=== PATIENT | female | born 1955 | race Caucasian/White ===

== ENCOUNTER 2023-06-23 14:00 | Outpatient (OUT) | payer MEDICARE, SELFPAY ==
[2023-06-23 15:10] LABS: Estimated Average Glucose 111 mg/dL; Glycohemoglobin A1C 5.5 % (4.5-6.2)
[2023-06-23 15:17] LABS: Alanine Aminotransferase 20 U/L (14-59); Albumin Globulin Ratio 1.3; Alkaline Phosphatase 64 U/L (46-116); Anion Gap 13.5; Aspartate Amino Transferase 16 U/L (15-37); BUN Creatinine Ratio 20.5; Bilirubin Total 0.4 mg/dL (0.2-1.0); Calcium 9.1 mg/dL (8.5-10.1); Carbon Dioxide 31.8 mmol/L (21.0-32.0); Chloride 100 mmol/L (98-107); Chol HDL Ratio 2.4; Cholesterol 263 mg/dL (<=200); Estimated GFR (African America >60 (>=60); Estimated GFR (Non-African Ame >60 (>=60); Free T3 2.28 pg/mL (2.18-3.98); Globulin 3.1 g/dL; Glucose 112 mg/dL (74-106); HDL Cholesterol 110 mg/dL (40-60); Potassium 4.3 mmol/L (3.5-5.1); Sodium 141 mmol/L (136-145); Thyroid Stimulating Hormone 1.185 uIU/mL (0.358-3.740); Total Protein 7.1 g/dL (6.4-8.2); Triglycerides 82 mg/dL (<=150); VLDL CHOLESTEROL 16.4 mg/dL
[2023-06-23 15:19] LABS: Basophils Percent Auto 0.3 % (0.2-2.0); Eosinophils Percent Auto 0.1 % (0.9-7.0); Hematocrit 45.8 % (36.0-48.0); Hemoglobin 15.1 g/dL (12.0-16.0); Immature Granulocytes Abs Auto 0.07 10^3/uL (0.00-0.03); Immature Granulocytes Pct Auto 0.5 % (0.0-0.5); Lymphocytes Absolute Auto 1.6 10^3/uL (1.2-3.8); Lymphocytes Percent Auto 11.7 % (20.5-60.0); Mean Corpuscular Hemoglobin 34.6 pg (26.7-34.0); Mean Corpuscular Volume 104.8 fL (81.0-99.0); Mean Platelet Volume 10.2 fL (9.5-13.5); Monocytes Absolute Auto 0.6 10^3/uL (0.3-0.8); Monocytes Percent Auto 4.6 % (1.7-12.0); Neutrophils Absolute Auto 11.2 10^3/uL (1.4-6.5); Neutrophils Percent Auto 82.8 % (43.0-75.0); Platelet Count 369 10^3/uL (150-450); Red Blood Count 4.37 10^6/uL (4.20-5.40); Red Cell Distribution Width 14.6 % (11.0-15.0); White Blood Count 13.6 10^3/uL (4.0-11.0)
[2023-06-24 13:09] LABS: Insulin 12.9 uIU/mL (2.6-24.9)
== END 2023-06-23 14:01 | disposition home or self-care (01) ==
LOC: LAB 14:15
PROVIDERS: PCP Nurse Practitioner Family; Visit Provider Nurse Practitioner Family
DX: J45.909 Unspecified asthma, uncomplicated (principal); E78.5 Hyperlipidemia, unspecified; D64.9 Anemia, unspecified; E11.9 Type 2 diabetes mellitus without complications; Z79.899 Other long term (current) drug therapy; Z12.11 Encounter for screening for malignant neoplasm of colon; E03.9 Hypothyroidism, unspecified; E55.9 Vitamin D deficiency, unspecified
CPT/HCPCS: 36415; 80053; 80061; 82306; 83036; 83525; 83540; 84436; 84443; 84481; 85025

== ENCOUNTER 2023-07-12 10:56 | Outpatient (OUT) | payer MEDICARE, SELFPAY ==
--- NOTE | 2023-07-12 11:08 | XR_ITS ---
The [address] [address] Patient Name: IDALMIS ROGER MRN: [id number] date: 1955 Sex: F Assigned Patient Location: [facility] Current Patient Location: Accession/Order Number: [id number] Exam Date: 07/12/2023 11:15 Report Date: 07/13/2023 01:24 At the request of: KEV DEVINE Procedure: XR thoracic spine 3V EXAMINATION: XR thoracic spine 3V HISTORY: Other Intervertebral Disc Degeneration Thoracic Spine M51.34 ; mid back pain for 3 weeks; no known injury COMPARISON: CT chest 01/29/2021 FINDINGS: BONES: Compression fracture of T7 vertebral body with loss of approximately 40% of its height. Mild left convex curvature of thoracic spine and right convex curvature of thoracolumbar spine. DISC SPACES: Multilevel mild narrowing. PARASPINOUS: Negative. No paraspinous abnormality is seen. OTHER: Negative. XR/XR thoracic spine 3V IMPRESSION: 1. Age-indeterminate moderate compression fracture of T7; new since 01/29/2021. Electronically authenticated by: BRENNAN DAVIDSON Date: 07/13/2023 01:24
== END 2023-07-12 10:57 | disposition home or self-care (01) ==
PROVIDERS: PCP Nurse Practitioner Family; Visit Provider Nurse Practitioner Family
DX: M51.34 Other intervertebral disc degeneration, thoracic region (principal); M48.54XA Collapsed vertebra, not elsewhere classified, thoracic region, initial encounter for fracture
CPT/HCPCS: 72072

== ENCOUNTER 2023-07-19 12:47 | Outpatient (OUT) | payer MEDICARE, SELFPAY ==
--- NOTE | 2023-07-19 13:19 | XR_ITS ---
[address] [address] Patient Name: IDALMIS ROGER MRN: [id number] date: 1955 Sex: F Assigned Patient Location: [facility] Current Patient Location: [facility] Accession/Order Number: [id number] Exam Date: 07/19/2023 13:09 Report Date: 07/19/2023 13:47 At the request of: KEV DEVINE Procedure: XR DEXA axial skeleton EXAMINATION: XR DEXA axial skeleton, 07/19/2023 1:09 PM EST HISTORY: Compression fracture of body of thoracic vertebrae COMPARISON: None. TECHNIQUE: Dual-energy X-ray absorptiometry (DEXA) bone density study performed for the axial skeleton. HISTORY: Compression fracture of body of thoracic vertebrae FINDINGS: Bone mineral density AP spine L1-L4 measures 0.823 g/sq cm. T score -3.0. WHO classification: Osteoporosis. High fracture risk. Lowest bone mineral densities in the left femoral trochanter measuring 0.449 g/sq cm. T score -3.5. WHO classification: Osteoporosis XR/XR DEXA axial skeleton IMPRESSION: Osteoporosis. High fracture risk Electronically authenticated by: NAHID LOPEZ Date: 07/19/2023 13:47
== END 2023-07-19 12:48 | disposition home or self-care (01) ==
LOC: RAD 12:47
PROVIDERS: PCP Nurse Practitioner Family; Visit Provider Nurse Practitioner Family
DX: S22.000A Wedge compression fracture of unspecified thoracic vertebra, initial encounter for closed fracture (principal); M81.0 Age-related osteoporosis without current pathological fracture
CPT/HCPCS: 77080

== ENCOUNTER 2024-07-24 10:08 | Emergency (ER) | payer MEDICARE, SELFPAY ==
[2024-07-24 10:19] VITALS: BP 160/82; PULSE 87; TEMP 36.7; O2SAT 94; BMI 20.3
--- NOTE | 2024-07-24 10:24 | XR_ITS ---
The [address] [address] Patient Name: IDALMIS ROGER MRN: [id number] date: 1955 Sex: F Assigned Patient Location: ER Current Patient Location: ER Accession/Order Number: [id number] Exam Date: 07/24/2024 10:35 Report Date: 07/24/2024 11:14 At the request of: DONNY ARRIAZA Procedure: XR ribs RT min 3V w CXR1V EXAMINATION: XR ribs RT min 3V w CXR1V HISTORY: fall COMPARISON: No relevant comparison available. FINDINGS: LUNGS: No significant pulmonary parenchymal abnormalities. Hyperinflation PLEURA: No pneumothorax, effusion, or pleural thickening. MEDIASTINUM: No visible mass or adenopathy. CARDIAC: No cardiomegaly or cardiac silhouette abnormality. RIBS: No acute rib fracture OTHER: Negative. XR/XR ribs RT min 3V w CXR1V IMPRESSION: No acute rib fracture Electronically authenticated by: NAHID LOPEZ Date: 07/24/2024 11:14
--- NOTE | 2024-07-24 10:24 | XR_ITS ---
The [address] [address] Patient Name: IDALMIS ROGER MRN: [id number] date: 1955 Sex: F Assigned Patient Location: ER Current Patient Location: ER Accession/Order Number: [id number] Exam Date: 07/24/2024 10:35 Report Date: 07/24/2024 11:12 At the request of: DONNY ARRIAZA Procedure: XR sternum min 2V EXAMINATION: XR sternum min 2V HISTORY: fall COMPARISON: No relevant comparison available. FINDINGS: BONES: No definite fracture LUNGS: No appreciable pneumothorax or pleural thickening. OTHER: Negative. XR/XR sternum min 2V IMPRESSION: No acute fracture Electronically authenticated by: NAHID LOPEZ Date: 07/24/2024 11:12
--- NOTE | 2024-07-24 10:26 | ED.GENADUL1 ---
HPI HPI - General Adult General Chief complaint: Extremity Injury, Upper Stated complaint: FALL - RT SIDE PAIN Time Seen by Provider: 07/24/24 10:22 Source: patient Mode of arrival: Wheelchair History of Present Illness HPI narrative: 69-year-old female the emergency department for a chief complaint of pain in her right upper sternal area. She fell last night when she slipped. She has pain in the right hip and sustained some bruising of the right elbow area but the elbow does not hurt. She did not hit her head. She does not complain to me of shortness of breath or neck pain. No abdominal pain. Related Data Home Medications ?Medication ?Instructions ?Recorded ?Confirmed albuterol sulfate 90 mcg/actuation 1 puff inhalation QID PRN 07/24/24 07/24/24 aerosol inhaler shortness of breath or wheezing levothyroxine 150 mcg tablet 150 mcg PO QAM 07/24/24 07/24/24 prednisone 10 mg tablet 10 mg PO DAILY 07/24/24 07/24/24 valacyclovir 500 mg tablet 500 mg PO BID 07/24/24 07/24/24 Previous Rx's ?Medication ?Instructions ?Recorded etodolac 400 mg tablet 400 mg PO Q8H PRN pain #20 tabs 07/24/24 Allergies Allergy/AdvReac Type Severity Reaction Status Date / Time codeine Allergy Severe Nausea Verified 07/24/24 10:24 Opioid HPI Opioid Management Most Recent Opioid Data: No Data to Display Review of Systems ROS Narrative A ten point review of systems is negative except as noted above. Exam Narrative Exam Narrative: Nurses note and vital signs reviewed and patient is not hypoxic. General: The patient appears in no apparent distress. Skin: Warm, dry, no pallor noted. There is no rash noted. Head: Normocephalic, atraumatic Eye: Normal conjunctiva, no drainage Ears, Nose, Mouth, and Throat: oral mucosa is moist. Nares patent. Cardiovascular: Regular Rate and Rhythm Respiratory: Patient is in no distress, no accessory muscle use, lungs are clear to auscultation, no wheezing, rales or rhonchi. She has swelling and tenderness at the right upper sternal border. There is no crepitus or break in the skin. The length of the clavicle does not seem to be tender. Back: non-tender GI: Soft and nontender Musculoskeletal: Right elbow has small areas of bruises but has full range of motion without discomfort. She has diffuse tenderness in the right hip area. Neurological: A&O, normal speech Psychiatric: Cooperative Constitutional Vital Signs, click to edit/add: Last Vital Signs Temp 98.1 F 07/24/24 10:19 Pulse 87 07/24/24 10:19 Resp 20 07/24/24 10:19 BP 160/82 H 07/24/24 10:19 Pulse Ox 94 L 07/24/24 10:19 O2 Del Method Room Air 07/24/24 10:19 Course Vital Signs Vital signs: Vital Signs Temperature 98.1 F 07/24/24 10:19 Pulse Rate 87 07/24/24 10:19 Respiratory Rate 20 07/24/24 10:19 Blood Pressure 160/82 H 07/24/24 10:19 Pulse Oximetry 94 L 07/24/24 10:19 Oxygen Delivery Method Room Air 07/24/24 10:19 Temperature 98.1 F 07/24/24 10:19 Pulse Rate 87 07/24/24 10:19 Respiratory Rate 20 07/24/24 10:19 Blood Pressure 160/82 H 07/24/24 10:19 Pulse Oximetry 94 L 07/24/24 10:19 Oxygen Delivery Method Room Air 07/24/24 10:19 Medical Decision Making MDM Narrative Medical decision making narrative: X-rays are all negative and should be treated symptomatically. Treatment diagnosis and follow-up were discussed with the patient. Differential Diagnosis Differential Diagnosis: Rib fracture, contusion, sternal fracture, hip fracture, hip contusion Imaging Data Hip, rib, sternum x-ray: Radiologist's impression: ITS Impressions Ribs X-Ray 07/24/24 10:24 IMPRESSION: No acute rib fracture Electronically authenticated by: NAHID LOPEZ Date: 07/24/2024 11:14 Sternum X-Ray 07/24/24 10:24 IMPRESSION: No acute fracture Electronically authenticated by: NAHID LOPEZ Date: 07/24/2024 11:12 Hip X-Ray 07/24/24 10:55 IMPRESSION: No acute fracture Electronically authenticated by: NAHID LOPEZ Date: 07/24/2024 11:10 Discharge Plan Discharge Chief Complaint: Extremity Injury, Upper Clinical Impression: Fall, Multiple contusions Patient Disposition: Home, Self-Care Time of Disposition Decision: 11:19 Prescriptions / Home Meds: New etodolac 400 mg tablet 400 mg PO Q8H PRN (Reason: pain) Qty: 20 0RF No Action albuterol sulfate 90 mcg/actuation HFA aerosol inhaler 1 puff INHALATION QID PRN (Reason: shortness of breath or wheezing) levothyroxine 150 mcg tablet 150 mcg PO QAM prednisone 10 mg tablet 10 mg PO DAILY valacyclovir 500 mg tablet 500 mg PO BID Print Language: Ukrainian Instructions: Fall Prevention for Older Adults (ED), Contusion in Adults (ED) Referrals: KEV DEVINE [Primary Care Provider] - 1 week
--- OUTSIDE RECORDS SUMMARY | 2024-07-24 10:30 | XMS_ITS | CCD ---
Author Organization [facility] Inform ion Partnership [facility] [place] [facility] Care Team Providers Care Staffing Branch Manager Name Role Phone KEV DEVINE Admitting Unavailable KEV DEVINE Attending Unavailable KEV DEVINE Primary Care Unavailable KEV DEVINE Consulting Unavailable KEV DEVINE Admitting Unavailable KEV DEVINE Attending Unavailable KEV DEVINE Primary Care Unavailable KEV DEVINE Consulting Unavailable Problems Problem Classification Problem Date Documented Da te Episodic/Chronic Deficiency and other anemia (1 source) Anemia, unspecified; Translations: [ANEMIA UNSPECIFIED] Onset: 06-21-2022 Episodic Diabetes mellitus without complication (1 source) Other abnormal glucose; Translations: [OTHER ABNORMAL GLUCOSE] Onset: 06-21-2022 Episodic Disorders of lipid metabolism (1 source) Hyperlipidemia, unspecified; Translations: [HYPERLIPIDEMIA UNSPECIFIED] Onset: 06-21-2022 Chronic Thyroid disorders (4 sources) Hypothyroidism, unspecified; Translations: [HYPOTHYROIDISM UNSPECIFIED] Onset: 06-17-2022 Chronic Results Test Name Value Interpretation Reference Range Facil ity INSULINon 06-18-2022 Insulin 6.3 uIU/mL Normal 2.6-24.9 [facility] Comment on above: Performed By: #### I NSULIN #### [facility] [address] [address] [address] Celeste Herron CBC AUTO DIFFon 06-17-2022 BASO # 0.1 103/ul Normal 0.0-0.1 [facility] Comment on above: Performed By: #### I REBECA #### [facility] [address] [address] [address] Celeste Herron Basophils/100 WBC (Bld) 0.5 % Normal 0.2-2.0 [facility] Comment on above: Performed By: #### I REBECA #### [facility] [address] [address] [address] Celeste Herron EO # 0.2 103/ul Normal 0.0-0.7 [facility] Comment on above: Performed By: #### I REBECA #### [facility] [address] [place] [address] Dr. Celeste Herron Eosinophils/100 WBC (Bld) 1.0 % Normal 0.9-7.0 [facility] Comment on above: Performed By: #### I REBECA #### [facility] [address] [place] [address] Dr. Celeste Herron Erythrocyte distribution width (RBC) [Ratio] 14.6 % Normal 11.0-15.0 [facility] Comment on above: Performed By: #### I REBECA #### [facility] [address] [place] [address] Dr. Celeste Herron Hematocrit (Bld) [Volume fraction] 46.0 % Normal 36.0-48.0 [facility] Comment on above: Performed By: #### I REBECA #### [facility] [address] [place] [address] Dr. Celeste Herron Hemoglobin (Bld) [Mass/Vol] 15.2 g/dL Normal 12.0-16.0 [facility] Comment on above: Performed By: #### I REBECA #### [facility] [address] [place] [address] Dr. Celeste Herron IG # 0.11 10e3/ul Critically high 0.00-0.03 [facility] Comment on above: Performed By: #### I REBECA #### [facility] [address] [place] [address] Dr. Celeste Herron IG % 0.6 % Critically high 0.0-0.5 [facility] Comment on above: Performed By: #### I REBECA #### [facility] [address] [place] [address] Dr. Celeste Herron LYMPH # 2.1 103/ul Normal 1.2-3.8 [facility] Comment on above: Performed By: #### I REBECA #### [facility] [address] [place] [address] Dr. Celeste Herron Lymphocytes/100 WBC (Bld) 10.9 % Critically low 20.5-60.0 [facility] Comment on above: Performed By: #### I REBECA #### [facility] [address] [place] [address] Dr. Celeste Herron MANUAL DIFF REQ NO Normal [facility] Comment on above: Performed By: #### I REBECA #### [facility] [address] [place] [address] Dr. Celeste Herron MCH (RBC) [Entitic mass] 33.5 pg Normal 26.7-34.0 [facility] Comment on above: Performed By: #### I REBECA #### [facility] [address] [place] [address] Dr. Celeste Herron MCHC (RBC) [Mass/Vol] 33.0 g/dL Normal 29.9-35.2 [facility] Comment on above: Performed By: #### I REBECA #### [facility] [address] [place] [address] Dr. Celeste Herron MCV (RBC) [Entitic vol] 101.3 fL Critically high 81.0-99.0 [facility] Comment on above: Performed By: #### I REBECA #### [facility] [address] [place] [address] Dr. Celeste Herron MONO # 0.9 103/ul Critically high 0.3-0.8 [facility] Comment on above: Performed By: #### I REBECA #### [facility] [address] [place] [address] Dr. Celeste Herron Monocytes/100 WBC (Bld) 4.5 % Normal 1.7-12.0 [facility] Comment on above: Performed By: #### I REBECA #### [facility] [address] [place] [address] Dr. Celeste Herron NEUT # 15.8 103/ul Critically high 1.4-6.5 [facility] Comment on above: Performed By: #### I REBECA #### [facility] [address] [place] [address] Dr. Celeste Herron Neutrophils/100 WBC (Bld) 82.5 % Critically high 43.0-75.0 [facility] Comment on above: Performed By: #### I REBECA #### [facility] [address] [place] [address] Dr. Celeste Herron Platelet mean volume (Bld) [Entitic vol] 9.5 fL Normal 9.5-13.5 [facility] Comment on above: Performed By: #### I REBECA #### [facility] [address] [address] [address] Celeste Herron PLT 361 103/ul Normal 150-450 [facility] Comment on above: Performed By: #### I REBECA #### [facility] [address] [place] [address] Dr. Celeste Herron RBC 4.54 106/ul Normal 4.20-5.40 [facility] Comment on above: Performed By: #### I REBECA #### [facility] [address] [place] [address] Dr. Celeste Herron WBC 19.1 103/ul Critically high 4.0-11.0 [facility] Comment on above: Performed By: #### I REBECA #### [facility] [address] [place] [address] Dr. Celeste Herron FREE THYROXINE INDEX T7on FTI 4.07 Normal 1.30-4.50 [facility] Comment on above: Performed By: #### T SH, T7, CMP, LIPID #### [facility] [address] [place] [address] Dr. Celeste Herron T3U 37.0 % Normal 30.0-39.0 [facility] Comment on above: Performed By: #### T SH, T7, CMP, LIPID #### [facility] [address] [place] [address] Dr. Celeste Herron T4 [Mass/Vol] 11.00 ug/dL Normal 4.80-13.90 [facility] Comment on above: Performed By: #### T SH, T7, CMP, LIPID #### [facility] [address] [place] [address] Dr. Celeste Herron GLYCOHEMOGLOBIN A1Con 2021 ADA RECOMMENDATION SEE BELOW Normal [facility] Comment on above: Result Comment: ADA RECOMMENDED LIMIT 4.0 - 6.0 ADA THERAPEUTIC TARGET < 7.0 ACTION SUGGESTED > 7.0 Performed By: #### A 1C #### [facility] [address] [address] [address] Celeste Herron Glucose [Mass/Vol] 117 mg/dL Normal [facility] Comment on above: Performed By: #### A 1C #### [facility] [address] [address] [address] Celeste Herron HbA1c (Bld) [Mass fraction] 5.7 % Normal 4.5-6.2 [facility] Comment on above: Performed By: #### A 1C #### [facility] [address] [place] [address] Dr. Celeste Herron IRONon 06-17-2022 Iron [Mass/Vol] 121.0 ug/dL Normal 50.0-170.0 [facility] Comment on above: Performed By: #### I REBECA #### [facility] [address] [place] [address] Dr. Celeste Herron LIPID PROFILEon 06-17-2022 CHOL-HDL RATIO NORM SEE BELOW Normal [facility] Comment on above: Result Comment: 3.3 - 4.4 LOW RISK 4.4 - 7.1 AVERAGE RISK 7.1 - 11.0 MODERATE RISK >11.0 HIGH RISK Performed By: #### T SH, T7, CMP, LIPID #### [facility] [address] [place] [address] Dr. Celeste Herron Cholesterol [Mass/Vol] 235 mg/dL Critically high <=200 [facility] Comment on above: Performed By: #### T SH, T7, CMP, LIPID #### [facility] [address] [address] [address] Celeste Herron Cholesterol in HDL [Mass/Vol] 90 mg/dL Critically high 40-60 [facility] Comment on above: Performed By: #### T SH, T7, CMP, LIPID #### [facility] [address] [address] [address] Celeste Herron Cholesterol in LDL [Mass/Vol] 122.8 mg/dL Normal [facility] Comment on above: Performed By: #### T SH, T7, CMP, LIPID #### [facility] [address] [address] [address] Celeste Herron Cholesterol.total/Cho lesterol in HDL [Mass ratio] 2.6 {ratio} Normal [facility] Comment on above: Performed By: #### T SH, T7, CMP, LIPID #### [facility] [address] [address] [address] Celeste Herron HDL NORMAL > or = 60 mg/dl - LOW CARDIOVASCULAR RISK <40 mg/dl - HIGH CARDIOVASCULAR RISK Normal [facility] Comment on above: Performed By: #### T SH, T7, CMP, LIPID #### [facility] [address] [address] [address] Celeste Herron LDL CALC NORMAL SEE BELOW Normal [facility] Comment on above: Result Comment: <100 mg/dl OPTIMAL 100 - 129 mg/dl NEAR OR ABOVE OPTIMAL 130 - 159 mg/dl BORDERLINE HIGH 160 - 189 mg/dl HIGH >190 mg/dl VERY HIGH Performed By: #### T SH, T7, CMP, LIPID #### [facility] [address] [address] [address] Celeste Herron Triglyceride [Mass/Vol] 111 mg/dL Normal <=150 [facility] Comment on above: Performed By: #### T SH, T7, CMP, LIPID #### [facility] [address] [address] [address] Celeste Herron VLDL CALC 22.2 mg/dL Normal [facility] Comment on above: Performed By: #### T SH, T7, CMP, LIPID #### [facility] [address] [address] [address] Celeste Herron PROF 14(COMP METB)on 022 Albumin [Mass/Vol] 3.8 g/dL Normal 3.4-5.0 [facility] Comment on above: Performed By: #### T SH, T7, CMP, LIPID #### [facility] [address] [address] [address] Celeste Herron Albumin/Globulin [Mass ratio] 1.2 {ratio} Normal [facility] Comment on above: Performed By: #### T SH, T7, CMP, LIPID #### [facility] [address] [address] [address] Celeste Herron ALP [Catalytic activity/Vol] 60 U/L Normal 46-116 [facility] Comment on above: Performed By: #### T SH, T7, CMP, LIPID #### [facility] [address] [address] [address] Celeste Herron ALT [Catalytic activity/Vol] 18 U/L Normal 14-59 [facility] Comment on above: Performed By: #### T SH, T7, CMP, LIPID #### [facility] [address] [address] [address] Celeste Herron Anion gap [Moles/Vol] 11.0 mmol/L Normal [facility] Comment on above: Performed By: #### T SH, T7, CMP, LIPID #### [facility] [address] [address] [address] Celeste Herron AST [Catalytic activity/Vol] 16 U/L Normal 15-37 [facility] Comment on above: Performed By: #### T SH, T7, CMP, LIPID #### [facility] [address] [place] [address] Dr. Celeste Herron Bilirubin [Mass/Vol] 0.5 mg/dL Normal 0.2-1.0 [facility] Comment on above: Performed By: #### T SH, T7, CMP, LIPID #### [facility] [address] [place] [address] Dr. Celeste Herron Calcium [Mass/Vol] 9.2 mg/dL Normal 8.5-10.1 [facility] Comment on above: Performed By: #### T SH, T7, CMP, LIPID #### [facility] [address] [address] [address] Celeste Herron Chloride [Moles/Vol] 102 mmol/L Normal 98-107 [facility] Comment on above: Performed By: #### T SH, T7, CMP, LIPID #### [facility] [address] [address] [address] Celeste Herrno CO2 [Moles/Vol] 30.0 mmol/L Normal 21.0-32.0 [facility] Comment on above: Performed By: #### T SH, T7, CMP, LIPID #### [facility] [address] [place] [address] Dr. Celeste Herron Creatinine [Mass/Vol] 0.76 mg/dL Normal 0.55-1.02 [facility] Comment on above: Performed By: #### T SH, T7, CMP, LIPID #### [facility] [address] [place] [address] Dr. Celeste Herron EGFR-AF TRISTANIAN >60 Normal >=60 [facility] Comment on above: Performed By: #### T SH, T7, CMP, LIPID #### [facility] [address] [place] [address] Dr. Celeste Herron EGFR-NON AF TRISTANIAN >60 Normal >=60 [facility] Comment on above: Performed By: #### T SH, T7, CMP, LIPID #### [facility] [address] [place] [address] Dr. Celeste Herron Globulin (S) [Mass/Vol] 3.2 g/dL Normal [facility] Comment on above: Performed By: #### T SH, T7, CMP, LIPID #### [facility] [address] [place] [address] Dr. Celeste Herron Glucose [Mass/Vol] 88 mg/dL Normal 74-106 [facility] Comment on above: Performed By: #### T SH, T7, CMP, LIPID #### [facility] [address] [place] [address] Dr. Celeste Herron Potassium [Moles/Vol] 4.0 mmol/L Normal 3.5-5.1 [facility] Comment on above: Performed By: #### T SH, T7, CMP, LIPID #### [facility] [address] [place] [address] Dr. Celeste Herron Protein [Mass/Vol] 7.0 g/dL Normal 6.4-8.2 [facility] Comment on above: Performed By: #### T SH, T7, CMP, LIPID #### [facility] [address] [place] [address] Dr. Celeste Herron Sodium [Moles/Vol] 139 mmol/L Normal 136-145 [facility] Comment on above: Performed By: #### T SH, T7, CMP, LIPID #### [facility] [address] [place] [address] Dr. Celeste Herron Urea nitrogen [Mass/Vol] 19.0 mg/dL Critically high 7.0-18.0 [facility] Comment on above: Performed By: #### T SH, T7, CMP, LIPID #### [facility] [address] [place] [address] Dr. Celeste Herron Urea nitrogen/Creatinine [Mass ratio] 25.0 mg/mg Normal [facility] Comment on above: Performed By: #### T SH, T7, CMP, LIPID #### [facility] [address] [place] [address] Dr. Celeste Herron TSHon 06-17-2022 TSH 0.297 uIU/mL Critically low 0.358-3.740 [facility] Comment on above: Performed By: #### T SH, T7, CMP, LIPID #### [facility] [address] [place] [address] Dr. Celeste Herron CBC AUTO DIFFon 07-07-2021 BASO # 0.1 103/ul Normal 0.0-0.1 [facility] Comment on above: Performed By: #### C BC #### [facility] [address] [place] [address] Dr. Celeste Herron Basophils/100 WBC (Bld) 0.7 % Normal 0.2-2.0 [facility] Comment on above: Performed By: #### C BC #### [facility] [address] [place] [address] Dr. Celeste Herron EO # 0.3 103/ul Normal 0.0-0.7 [facility] Comment on above: Performed By: #### C BC #### [facility] [address] [address] [address] Celeste Herron Eosinophils/100 WBC (Bld) 2.4 % Normal 0.9-7.0 [facility] Comment on above: Performed By: #### C BC #### [facility] [address] [place] [address] Dr. Celeste Herron Erythrocyte distribution width (RBC) [Ratio] 14.4 % Normal 11.0-15.0 [facility] Comment on above: Performed By: #### C BC #### [facility] [address] [place] [address] Dr. Celeste Herron Hematocrit (Bld) [Volume fraction] 44.0 % Normal 36.0-48.0 [facility] Comment on above: Performed By: #### C BC #### [facility] [address] [place] [address] Dr. Celeste Herron Hemoglobin (Bld) [Mass/Vol] 14.4 g/dL Normal 12.0-16.0 [facility] Comment on above: Performed By: #### C BC #### [facility] [address] [place] [address] Dr. Celeste Herron IG # 0.04 10e3/ul Critically high 0.00-0.03 [facility] Comment on above: Performed By: #### C BC #### [facility] [address] [place] [address] Dr. Celeste Herron IG % 0.3 % Normal 0.0-0.5 [facility] Comment on above: Performed By: #### C BC #### [facility] [address] [place] [address] Dr. Celeste Herron LYMPH # 4.6 103/ul Critically high 1.2-3.8 [facility] Comment on above: Performed By: #### C BC #### [facility] [address] [place] [address] Dr. Celeste Herron Lymphocytes/100 WBC (Bld) 37.4 % Normal 20.5-60.0 [facility] Comment on above: Performed By: #### C BC #### [facility] [address] [place] [address] Dr. Celeste Herron MANUAL DIFF REQ NO Normal [facility] Comment on above: Performed By: #### C BC #### [facility] [address] [place] [address] Dr. Celeste Herron MCH (RBC) [Entitic mass] 33.0 pg Normal 26.7-34.0 [facility] Comment on above: Performed By: #### C BC #### [facility] [address] [place] [address] Dr. Celeste Herron MCHC (RBC) [Mass/Vol] 32.7 g/dL Normal 29.9-35.2 [facility] Comment on above: Performed By: #### C BC #### [facility] [address] [place] [address] Dr. Celeste Herron MCV (RBC) [Entitic vol] 100.9 fL Critically high 81.0-99.0 [facility] Comment on above: Performed By: #### C BC #### [facility] [address] [place] [address] Dr. Celeste Herron MONO # 1.1 103/ul Critically high 0.3-0.8 [facility] Comment on above: Performed By: #### C BC #### [facility] [address] [place] [address] Dr. Celeste Herron Monocytes/100 WBC (Bld) 9.2 % Normal 1.7-12.0 [facility] Comment on above: Performed By: #### C BC #### [facility] [address] [place] [address] Dr. Celeste Herron NEUT # 6.1 103/ul Normal 1.4-6.5 [facility] Comment on above: Performed By: #### C BC #### [facility] [address] [place] [address] Dr. Celeste Herron Neutrophils/100 WBC (Bld) 50.0 % Normal 43.0-75.0 [facility] Comment on above: Performed By: #### C BC #### [facility] [address] [place] [address] Dr. Celeste Herron Platelet mean volume (Bld) [Entitic vol] 9.5 fL Normal 9.5-13.5 [facility] Comment on above: Performed By: #### C BC #### [facility] [address] [place] [address] Dr. Celeste Herron PLT 339 103/ul Normal 150-450 [facility] Comment on above: Performed By: #### C BC #### [facility] [address] [place] [address] Dr. Celeste Herron RBC 4.36 106/ul Normal 4.20-5.40 [facility] Comment on above: Performed By: #### C BC #### [facility] [address] [place] [address] Dr. Celeste Herron WBC 12.3 103/ul Critically high 4.0-11.0 [facility] Comment on above: Performed By: #### C BC #### [facility] [address] [place] [address] Dr. Celeste Herron FREE THYROXINE INDEX T7on FTI 4.11 Normal [facility] Comment on above: Performed By: #### T 7, TSH #### [facility] [address] [place] [address] Dr. Celeste Herron T3U 37.0 % Normal 23.5-40.5 [facility] Comment on above: Performed By: #### T 7, TSH #### [facility] [address] [place] [address] Dr. Celeste Herron T4 [Mass/Vol] 11.10 ug/dL Critically high 5.53-11.00 [facility] Comment on above: Performed By: #### T 7, TSH #### [facility] [address] [place] [address] Dr. Celeste Herron TSHon 07-07-2021 TSH 0.149 uIU/mL Critically low 0.470-4.680 [facility] Comment on above: Performed By: #### T 7, TSH #### [facility] [address] [place], [place] [address] Dr. Celeste Herron TSH RANGE SEE BELOW Normal [facility] Comment on above: Result Comment: <0.3 4 UIU/ml HYPERTHYROID 0.34-5.60 UIU/ml EUTHYROID >5.60 UIU/ml HYPOTHYROID Performed By: #### T 7, TSH #### [facility] [id number] Celeste Herron Encounters Encounter Date Encounter Type Care Provider Facility Start: 06-17-2022 End: 06-18-2022 ambulatory KEVKAUR DEVINE Facility:[facility] Start: 08-05-2021 Encounter for genera l adult medical examination without abnormal findings KEV DEVINE [facility] Start: 07-07-2021 End: 07-08-2021 ambulatory KEV DEVINE Facility:[facility] Start: 07-07-2021 End: 07-08-2021 Encounter for general adult medical examination without abnormal findings KEVKAUR DEVINE Facility: Payers Date Payer Category Payer Medicare [id number] 1955 Unknown [id number] 1955 Unknown [id number] Summary Purpose Family History No Family History Records Found Advance Directives No Advanced Directives Records Found Additional Source Comments INFORMATION SOURCE (unrecogn ized section and content) DATE CREATED AUTHOR 06/21/2022 [facility] FOR RECORDS PERTAINING TO PATIENTS WHO ARE OR HAVE BEEN ENROLLED IN A CHEMICAL DEPENDENCY/SUBSTANCEABUSE PROGRAM, SOME INFORMATION MAY BE OMITTED. This clinical summary was aggregated from multiple sources. Caution should be exercised in using it in the provision of clinical care. This summary normalizes information from multiple sources, and as a consequence, information in this document may materially change the coding, format and clinical context of patient data. In addition, data may be omitted in some cases. CLINICAL DECISIONS SHOULD BE BASED ON THE PRIMARY CLINICAL RECORDS. [facility]. provides no warranty or guarantee of the accuracy or completeness of information in this document.
--- NOTE | 2024-07-24 10:55 | XR_ITS ---
The [address] [address] Patient Name: IDALMIS ROGER MRN: [id number] date: 1955 Sex: F Assigned Patient Location: ER Current Patient Location: ER Accession/Order Number: [id number] Exam Date: 07/24/2024 10:35 Report Date: 07/24/2024 11:10 At the request of: DONNY ARRIAZA Procedure: XR hip RT min 2V PROCEDURE: XR hip RT min 2V COMPARISON: None. HISTORY: fall FINDINGS: BONES:No fracture, acute abnormality, or significant arthropathy. SOFT TISSUES:Negative. No visible soft tissue swelling. EFFUSION:None visible. OTHER: Negative. XR/XR hip RT min 2V IMPRESSION: No acute fracture Electronically authenticated by: NAHID LOPEZ Date: 07/24/2024 11:10
== END 2024-07-24 11:43 | disposition home or self-care (01) ==
PROVIDERS: Emergency Provider Emergency Medicine; PCP Nurse Practitioner Family
DX: S50.01XA Contusion of right elbow, initial encounter (principal); S70.01XA Contusion of right hip, initial encounter; W01.0XXA Fall on same level from slipping, tripping and stumbling without subsequent striking against object, initial encounter
CPT/HCPCS: 71101; 71120; 73502; 99284

== ENCOUNTER 2024-08-02 12:52 | Outpatient (OUT) | payer MEDICARE, SELFPAY ==
--- NOTE | 2024-08-02 13:00 | XR_ITS ---
[address] [address] Patient Name: IDALMIS ROGER MRN: [id number] date: 1955 Sex: F Assigned Patient Location: [facility] Current Patient Location: [facility] Accession/Order Number: [id number] Exam Date: 08/02/2024 13:15 Report Date: 08/02/2024 14:30 At the request of: KEV DEVINE Procedure: XR clavicle RT PROCEDURE: XR clavicle RT HISTORY: Clavicle Pain COMPARISON: None. FINDINGS: BONES:No fracture, dislocation, bone lesion, or periosteal reaction. Mild-moderate degenerative changes of the acromioclavicular joint. SOFT TISSUES:No visible soft tissue swelling. EFFUSION:None visible. OTHER: Negative. XR/XR clavicle RT IMPRESSION: 1. Mild-moderate degenerative changes of the acromioclavicular joint. 2. No acute or suspicious bone abnormality. Electronically authenticated by: BRENNAN DAVIDSON Date: 08/02/2024 14:30
--- NOTE | 2024-08-02 13:00 | CT_ITS ---
The [address] [address] Patient Name: IDALMIS ROGER MRN: [id number] date: 1955 Sex: F Assigned Patient Location: [facility] Current Patient Location: [facility] Accession/Order Number: [id number] Exam Date: 08/02/2024 13:15 Report Date: 08/03/2024 13:12 At the request of: KEV DEVINE Procedure: CT pelvis wo con EXAMINATION: CT pelvis wo con HISTORY: Right Hip Pain, Right Groin Wound COMPARISON: No relevant comparison available. TECHNIQUE: Axial, Coronal, and Sagittal images were obtained without and/or with IV contrast as indicated by examination type. Dose reduction techniques were achieved by using automated exposure control and/or adjustment of mA and/or kV according to patient size and/or use of iterative reconstruction technique FINDINGS: BOWEL: Diverticulosis of distal colon without acute inflammatory changes. LYMPH NODES: No adenopathy. URINARY BLADDER: No visible focal wall thickening, lesion, or calculus. PELVIC ORGANS: Hysterectomy. ANTERIOR WALL: No hernia. BONES: Minimally displaced fracture of the right superior pubic ramus near the pubic symphysis. No appreciable fracture of the inferior ramus. No adjacent hematoma. OTHER: Degenerative disc disease of L5-S1. CT/CT pelvis wo con IMPRESSION: 1. Acute, minimally displaced fracture of the right superior pubic ramus. No second fracture is identified. Electronically authenticated by: BRENNAN DAVIDSON Date: 08/03/2024 13:12
--- OUTSIDE RECORDS SUMMARY | 2024-08-02 13:02 | XMS_ITS | CCD ---
Author Organization [facility] Inform ion Partnership [facility] Care Team Providers Care Feather Maker Name Role Phone KEV DEVINE Admitting Unavailable [...] INSULINon 06-18-2022 Insulin 6.3 uIU/mL Normal 2.6-24.9 [facility] Comment on above: Performed By: #### I NSULIN #### [facility] [address] [address] [address] Celeste Herron CBC AUTO DIFFon 06-17-2022 BASO # 0.1 103/ul Normal 0.0-0.1 [facility] Comment on above: Performed By: #### I REBECA #### [facility] [address] [address] [address] Celeste Herron Basophils/100 WBC (Bld) 0.5 % Normal 0.2-2.0 [facility] Comment on above: Performed By: #### I REBECA #### [facility] [address] [address] [address] Celeste Herron EO # 0.2 103/ul Normal 0.0-0.7 [facility] Comment on above: Performed By: #### I REBECA #### [facility] [address] [place] [address] Dr. Celeste Herron Eosinophils/100 WBC (Bld) 1.0 % Normal 0.9-7.0 [facility] Comment on above: Performed By: #### I REBECA #### [facility] [address] [place] [address] Dr. Celeste Herron Erythrocyte distribution width (RBC) [Ratio] 14.6 % Normal 11.0-15.0 [facility] Comment on above: Performed By: #### I REBECA #### [facility] [address] [place] [address] Dr. Celeste Herron Hematocrit (Bld) [Volume fraction] 46.0 % Normal 36.0-48.0 [facility] Comment on above: Performed By: #### I REBECA #### [facility] [address] [place] [address] Dr. Celeste Herron Hemoglobin (Bld) [Mass/Vol] 15.2 g/dL Normal 12.0-16.0 [facility] Comment on above: Performed By: #### I REBECA #### [facility] [address] [place] [address] Dr. Celeste Herron IG # 0.11 10e3/ul Critically high 0.00-0.03 [facility] Comment on above: Performed By: #### I REBECA #### [facility] [address] [place] [address] Dr. Celeste Herron IG % 0.6 % Critically high 0.0-0.5 [facility] Comment on above: Performed By: #### I REBECA #### [facility] [address] [place] [address] Dr. Celeste Herron LYMPH # 2.1 103/ul Normal 1.2-3.8 [facility] Comment on above: Performed By: #### I REBECA #### [facility] [address] [place] [address] Dr. Celeste Herron Lymphocytes/100 WBC (Bld) 10.9 % Critically low 20.5-60.0 [facility] Comment on above: Performed By: #### I REBECA #### [facility] [address] [place] [address] Dr. Celeste Herron MANUAL DIFF REQ NO Normal [facility] Comment on above: Performed By: #### I REBECA #### [facility] [address] [place] [address] Dr. Celeste Herron MCH (RBC) [Entitic mass] 33.5 pg Normal 26.7-34.0 [facility] Comment on above: Performed By: #### I REBECA #### [facility] [address] [place] [address] Dr. Celeste Herron MCHC (RBC) [Mass/Vol] 33.0 g/dL Normal 29.9-35.2 [facility] Comment on above: Performed By: #### I REBECA #### [facility] [address] [place] [address] Dr. Celeste Herron MCV (RBC) [Entitic vol] 101.3 fL Critically high 81.0-99.0 [facility] Comment on above: Performed By: #### I REBECA #### [facility] [address] [place] [address] Dr. Celeste Herron MONO # 0.9 103/ul Critically high 0.3-0.8 [facility] Comment on above: Performed By: #### I REBECA #### [facility] [address] [place] [address] Dr. Celeste Herron Monocytes/100 WBC (Bld) 4.5 % Normal 1.7-12.0 [facility] Comment on above: Performed By: #### I REBECA #### [facility] [address] [place] [address] Dr. Celeste Herron NEUT # 15.8 103/ul Critically high 1.4-6.5 [facility] Comment on above: Performed By: #### I REBECA #### [facility] [address] [place] [address] Dr. Celeste Herron Neutrophils/100 WBC (Bld) 82.5 % Critically high 43.0-75.0 [facility] Comment on above: Performed By: #### I REBECA #### [facility] [address] [place] [address] Dr. Celeste Herron Platelet mean volume (Bld) [Entitic vol] 9.5 fL Normal 9.5-13.5 [facility] Comment on above: Performed By: #### I REBECA #### [facility] [address] [address] [address] Celeste Herron PLT 361 103/ul Normal 150-450 [facility] Comment on above: Performed By: #### I REBECA #### [facility] [address] [place] [address] Dr. Celeste Herron RBC 4.54 106/ul Normal 4.20-5.40 [facility] Comment on above: Performed By: #### I REBECA #### [facility] [address] [place] [address] Dr. Celeste Herron WBC 19.1 103/ul Critically high 4.0-11.0 [facility] Comment on above: Performed By: #### I REBECA #### [facility] [address] [place] [address] Dr. Celeste Herron FREE THYROXINE INDEX T7on FTI 4.07 Normal 1.30-4.50 [facility] Comment on above: Performed By: #### T SH, T7, CMP, LIPID #### [facility] [address] [place] [address] Dr. Celeste Herron T3U 37.0 % Normal 30.0-39.0 [facility] Comment on above: Performed By: #### T SH, T7, CMP, LIPID #### [facility] [address] [place] [address] Dr. Celeste Herron T4 [Mass/Vol] 11.00 ug/dL Normal 4.80-13.90 [facility] Comment on above: Performed By: #### T SH, T7, CMP, LIPID #### [facility] [address] [place] [address] Dr. Celeste Herron GLYCOHEMOGLOBIN A1Con 2021 ADA RECOMMENDATION SEE BELOW Normal [facility] Comment on above: Result Comment: ADA RECOMMENDED LIMIT 4.0 - 6.0 ADA THERAPEUTIC TARGET < 7.0 ACTION SUGGESTED > 7.0 Performed By: #### A 1C #### [facility] [address] [address] [address] Celeste Herron Glucose [Mass/Vol] 117 mg/dL Normal [facility] Comment on above: Performed By: #### A 1C #### [facility] [address] [address] [address] Celeste Herron HbA1c (Bld) [Mass fraction] 5.7 % Normal 4.5-6.2 [facility] Comment on above: Performed By: #### A 1C #### [facility] [address] [place] [address] Dr. Celeste Herron IRONon 06-17-2022 Iron [Mass/Vol] 121.0 ug/dL Normal 50.0-170.0 [facility] Comment on above: Performed By: #### I REBECA #### [facility] [address] [place] [address] Dr. Celeste Herron LIPID PROFILEon 06-17-2022 CHOL-HDL RATIO NORM SEE BELOW Normal [facility] Comment on above: Result Comment: 3.3 - 4.4 LOW RISK 4.4 - 7.1 AVERAGE RISK 7.1 - 11.0 MODERATE RISK >11.0 HIGH RISK Performed By: #### T SH, T7, CMP, LIPID #### [facility] [address] [place] [address] Dr. Celeste Herron Cholesterol [Mass/Vol] 235 mg/dL Critically high <=200 [facility] Comment on above: Performed By: #### T SH, T7, CMP, LIPID #### [facility] [address] [address] [address] Celeste Herron Cholesterol in HDL [Mass/Vol] 90 mg/dL Critically high 40-60 [facility] Comment on above: Performed By: #### T SH, T7, CMP, LIPID #### [facility] [address] [address] [address] Celeste Herron Cholesterol in LDL [Mass/Vol] 122.8 mg/dL Normal [facility] Comment on above: Performed By: #### T SH, T7, CMP, LIPID #### [facility] [address] [address] [address] Celeste Herron Cholesterol.total/Cho lesterol in HDL [Mass ratio] 2.6 {ratio} Normal [facility] Comment on above: Performed By: #### T SH, T7, CMP, LIPID #### [facility] [address] [address] [address] Celeste Herron HDL NORMAL > or = 60 mg/dl - LOW CARDIOVASCULAR RISK <40 mg/dl - HIGH CARDIOVASCULAR RISK Normal [facility] Comment on above: Performed By: #### T SH, T7, CMP, LIPID #### [facility] [address] [address] [address] Celeste Herron LDL CALC NORMAL SEE BELOW Normal [facility] Comment on above: Result Comment: <100 mg/dl OPTIMAL 100 - 129 mg/dl NEAR OR ABOVE OPTIMAL 130 - 159 mg/dl BORDERLINE HIGH 160 - 189 mg/dl HIGH >190 mg/dl VERY HIGH Performed By: #### T SH, T7, CMP, LIPID #### [facility] [address] [address] [address] Celeste Herron Triglyceride [Mass/Vol] 111 mg/dL Normal <=150 [facility] Comment on above: Performed By: #### T SH, T7, CMP, LIPID #### [facility] [address] [address] [address] Celeste Herron VLDL CALC 22.2 mg/dL Normal [facility] Comment on above: Performed By: #### T SH, T7, CMP, LIPID #### [facility] [address] [address] [address] Celeste Herron PROF 14(COMP METB)on 022 Albumin [Mass/Vol] 3.8 g/dL Normal 3.4-5.0 [facility] Comment on above: Performed By: #### T SH, T7, CMP, LIPID #### [facility] [address] [address] [address] Celeste Herron Albumin/Globulin [Mass ratio] 1.2 {ratio} Normal [facility] Comment on above: Performed By: #### T SH, T7, CMP, LIPID #### [facility] [address] [address] [address] Celeste Herron ALP [Catalytic activity/Vol] 60 U/L Normal 46-116 [facility] Comment on above: Performed By: #### T SH, T7, CMP, LIPID #### [facility] [address] [address] [address] Celeste Herron ALT [Catalytic activity/Vol] 18 U/L Normal 14-59 [facility] Comment on above: Performed By: #### T SH, T7, CMP, LIPID #### [facility] [address] [address] [address] Celeste Herron Anion gap [Moles/Vol] 11.0 mmol/L Normal [facility] Comment on above: Performed By: #### T SH, T7, CMP, LIPID #### [facility] [address] [address] [address] Celeste Herron AST [Catalytic activity/Vol] 16 U/L Normal 15-37 [facility] Comment on above: Performed By: #### T SH, T7, CMP, LIPID #### [facility] [address] [place] [address] Dr. Celeste Herron Bilirubin [Mass/Vol] 0.5 mg/dL Normal 0.2-1.0 [facility] Comment on above: Performed By: #### T SH, T7, CMP, LIPID #### [facility] [address] [place] [address] Dr. Celeste Herron Calcium [Mass/Vol] 9.2 mg/dL Normal 8.5-10.1 [facility] Comment on above: Performed By: #### T SH, T7, CMP, LIPID #### [facility] [address] [address] [address] Celeste Herron Chloride [Moles/Vol] 102 mmol/L Normal 98-107 [facility] Comment on above: Performed By: #### T SH, T7, CMP, LIPID #### [facility] [address] [address] [address] Celeste Herron CO2 [Moles/Vol] 30.0 mmol/L Normal 21.0-32.0 [facility] Comment on above: Performed By: #### T SH, T7, CMP, LIPID #### [facility] [address] [place] [address] Dr. Celeste Herron Creatinine [Mass/Vol] 0.76 mg/dL Normal 0.55-1.02 [facility] Comment on above: Performed By: #### T SH, T7, CMP, LIPID #### [facility] [address] [place] [address] Dr. Celeste Herron EGFR-AF CANADIAN >60 Normal >=60 [facility] Comment on above: Performed By: #### T SH, T7, CMP, LIPID #### [facility] [address] [place] [address] Dr. Celeste Herron EGFR-NON AF CANADIAN >60 Normal >=60 [facility] Comment on above: Performed By: #### T SH, T7, CMP, LIPID #### [facility] [address] [place] [address] Dr. Celeste Herron Globulin (S) [Mass/Vol] 3.2 g/dL Normal [facility] Comment on above: Performed By: #### T SH, T7, CMP, LIPID #### [facility] [address] [place] [address] Dr. Celeste Herron Glucose [Mass/Vol] 88 mg/dL Normal 74-106 [facility] Comment on above: Performed By: #### T SH, T7, CMP, LIPID #### [facility] [address] [place] [address] Dr. Celeste Herron Potassium [Moles/Vol] 4.0 mmol/L Normal 3.5-5.1 [facility] Comment on above: Performed By: #### T SH, T7, CMP, LIPID #### [facility] [address] [place] [address] Dr. Celeste Herron Protein [Mass/Vol] 7.0 g/dL Normal 6.4-8.2 [facility] Comment on above: Performed By: #### T SH, T7, CMP, LIPID #### [facility] [address] [place] [address] Dr. Celeste Herron Sodium [Moles/Vol] 139 mmol/L Normal 136-145 [facility] Comment on above: Performed By: #### T SH, T7, CMP, LIPID #### [facility] [address] [place] [address] Dr. Celeste Herron Urea nitrogen [Mass/Vol] 19.0 mg/dL Critically high 7.0-18.0 [facility] Comment on above: Performed By: #### T SH, T7, CMP, LIPID #### [facility] [address] [place] [address] Dr. Celeste Herron Urea nitrogen/Creatinine [Mass ratio] 25.0 mg/mg Normal [facility] Comment on above: Performed By: #### T SH, T7, CMP, LIPID #### [facility] [address] [place] [address] Dr. Celeste Herron TSHon 06-17-2022 TSH 0.297 uIU/mL Critically low 0.358-3.740 [facility] Comment on above: Performed By: #### T SH, T7, CMP, LIPID #### [facility] [address] [place] [address] Dr. Celeste Herron CBC AUTO DIFFon 07-07-2021 BASO # 0.1 103/ul Normal 0.0-0.1 [facility] Comment on above: Performed By: #### C BC #### [facility] [address] [place] [address] Dr. Celeste Herron Basophils/100 WBC (Bld) 0.7 % Normal 0.2-2.0 [facility] Comment on above: Performed By: #### C BC #### [facility] [address] [place] [address] Dr. Celeste Herron EO # 0.3 103/ul Normal 0.0-0.7 [facility] Comment on above: Performed By: #### C BC #### [facility] [address] [address] [address] Celeste Herron Eosinophils/100 WBC (Bld) 2.4 % Normal 0.9-7.0 [facility] Comment on above: Performed By: #### C BC #### [facility] [address] [place] [address] Dr. Celeste Herron Erythrocyte distribution width (RBC) [Ratio] 14.4 % Normal 11.0-15.0 [facility] Comment on above: Performed By: #### C BC #### [facility] [address] [place] [address] Dr. Celeste Herron Hematocrit (Bld) [Volume fraction] 44.0 % Normal 36.0-48.0 [facility] Comment on above: Performed By: #### C BC #### [facility] [address] [place] [address] Dr. Celeste Herron Hemoglobin (Bld) [Mass/Vol] 14.4 g/dL Normal 12.0-16.0 [facility] Comment on above: Performed By: #### C BC #### [facility] [address] [place] [address] Dr. Celeste Herron IG # 0.04 10e3/ul Critically high 0.00-0.03 [facility] Comment on above: Performed By: #### C BC #### [facility] [address] [place] [address] Dr. Celeste Herron IG % 0.3 % Normal 0.0-0.5 [facility] Comment on above: Performed By: #### C BC #### [facility] [address] [place] [address] Dr. Celeste Herron LYMPH # 4.6 103/ul Critically high 1.2-3.8 [facility] Comment on above: Performed By: #### C BC #### [facility] [address] [place] [address] Dr. Celeste Herron Lymphocytes/100 WBC (Bld) 37.4 % Normal 20.5-60.0 [facility] Comment on above: Performed By: #### C BC #### [facility] [address] [place] [address] Dr. Celeste Herron MANUAL DIFF REQ NO Normal [facility] Comment on above: Performed By: #### C BC #### [facility] [address] [place] [address] Dr. Celeste Herron MCH (RBC) [Entitic mass] 33.0 pg Normal 26.7-34.0 [facility] Comment on above: Performed By: #### C BC #### [facility] [address] [place] [address] Dr. Celeste Herron MCHC (RBC) [Mass/Vol] 32.7 g/dL Normal 29.9-35.2 [facility] Comment on above: Performed By: #### C BC #### [facility] [address] [place] [address] Dr. Celeste Herron MCV (RBC) [Entitic vol] 100.9 fL Critically high 81.0-99.0 [facility] Comment on above: Performed By: #### C BC #### [facility] [address] [place] [address] Dr. Celeste Herron MONO # 1.1 103/ul Critically high 0.3-0.8 [facility] Comment on above: Performed By: #### C BC #### [facility] [address] [place] [address] Dr. Celeste Herron Monocytes/100 WBC (Bld) 9.2 % Normal 1.7-12.0 [facility] Comment on above: Performed By: #### C BC #### [facility] [address] [place] [address] Dr. Celeste Herron NEUT # 6.1 103/ul Normal 1.4-6.5 [facility] Comment on above: Performed By: #### C BC #### [facility] [address] [place] [address] Dr. Celeste Herron Neutrophils/100 WBC (Bld) 50.0 % Normal 43.0-75.0 [facility] Comment on above: Performed By: #### C BC #### [facility] [address] [place] [address] Dr. Celeste Herron Platelet mean volume (Bld) [Entitic vol] 9.5 fL Normal 9.5-13.5 [facility] Comment on above: Performed By: #### C BC #### [facility] [address] [place] [address] Dr. Celeste Herron PLT 339 103/ul Normal 150-450 [facility] Comment on above: Performed By: #### C BC #### [facility] [address] [place] [address] Dr. Celeste Herron RBC 4.36 106/ul Normal 4.20-5.40 [facility] Comment on above: Performed By: #### C BC #### [facility] [address] [place] [address] Dr. Celeste Herron WBC 12.3 103/ul Critically high 4.0-11.0 [facility] Comment on above: Performed By: #### C BC #### [facility] [address] [place] [address] Dr. Celeste Herron FREE THYROXINE INDEX T7on FTI 4.11 Normal [facility] Comment on above: Performed By: #### T 7, TSH #### [facility] [address] [place] [address] Dr. Celeste Herron T3U 37.0 % Normal 23.5-40.5 [facility] Comment on above: Performed By: #### T 7, TSH #### [facility] [address] [place] [address] Dr. Celeste Herron T4 [Mass/Vol] 11.10 ug/dL Critically high 5.53-11.00 [facility] Comment on above: Performed By: #### T 7, TSH #### [facility] [address] [place] [address] Dr. Celeste Herron TSHon 07-07-2021 TSH 0.149 uIU/mL Critically low 0.470-4.680 [facility] Comment on above: Performed By: #### T 7, TSH #### [facility] [address] [place], [place] [address] Dr. Celeste Herron TSH RANGE SEE BELOW Normal [facility] Comment on above: Result Comment: <0.3 4 UIU/ml HYPERTHYROID 0.34-5.60 UIU/ml EUTHYROID >5.60 UIU/ml HYPOTHYROID Performed By: #### T 7, TSH #### [facility] [id number] Celeste Herron Encounters Encounter Date Encounter Type Care Provider Facility Start: 06-17-2022 End: 06-18-2022 ambulatory KEVKAUR DEVINE Facility:[facility] Start: 08-05-2021 Encounter for genera l adult medical examination without abnormal findings KEV DEVINE [facility] Start: 07-07-2021 End: 07-08-2021 ambulatory KEV DEIVNE Facility:[facility] Start: 07-07-2021 End: 07-08-2021 Encounter for general adult medical examination without abnormal findings KEVKAUR DEVINE Facility: Payers Date Payer Category Payer Medicare [id number] 1955 Unknown [id number] 1955 Unknown [id number] Summary Purpose Family History No Family History Records Found Advance Directives No Advanced Directives Records Found Additional Source Comments INFORMATION SOURCE (unrecogn ized section and content) DATE CREATED AUTHOR 06/21/2022 [facility] FOR RECORDS PERTAINING TO PATIENTS WHO [...] BE BASED ON THE PRIMARY CLINICAL RECORDS. [facility]. provides no warranty or guarantee of the accuracy or completeness of information in this document.
== END 2024-08-02 12:53 | disposition home or self-care (01) ==
LOC: RAD 12:54
PROVIDERS: PCP Nurse Practitioner Family; Visit Provider Nurse Practitioner Family
DX: M25.551 Pain in right hip (principal); S31.109A Unspecified open wound of abdominal wall, unspecified quadrant without penetration into peritoneal cavity, initial encounter; M89.8X1 Other specified disorders of bone, shoulder; S32.591A Other specified fracture of right pubis, initial encounter for closed fracture; M19.011 Primary osteoarthritis, right shoulder
CPT/HCPCS: 72192; 73000

== ENCOUNTER 2025-01-28 11:48 | Outpatient (OUT) | payer MEDICARE, SELFPAY ==
--- OUTSIDE RECORDS SUMMARY | 2024-10-04 04:29 | XMS_ITS ---
Author Organization [facility] [place] Address [address] [place] [address] Care Team Providers Care Supervisor Accounts Receivable Name Role Phone Jalyn Hernández Primary Care Provider REASON FOR VISIT needs yearly Encounters Encounter Location Date Provider Diagnosis [facility] [address] [place] [address] 10/04/2024 Jalyn Hernández Plan Of Treatment No Information Progress Notes * Lainey ROGER EDOB:1955 (69 yo F)Acc No.[id number]:10/04/2024 Patient: Rachelle STOVALL Lainey nSyder :1955 A ge:69 Y S ex:Female Address:[address] [place] [address] * true * Date: Generated for Maggie han/Danica/eTransmitting on: 0 01/28/2025 12:01 PM EDT
--- OUTSIDE RECORDS SUMMARY | 2024-12-20 05:32 | XMS_ITS ---
Author Organization [facility] in [place] Address [address] [place] [address] Care Team Providers Care Ammunition Specialist Name Role Phone Jalyn Hernández Primary Care Provider REASON FOR VISIT refill Medications Medication SIG (Take, Route, Frequency, Duration) Notes Start Date End Date Status Albuterol Sulfate HFA 108 (90 Base) MCG/ACT INHALE 2 PUFFS BY MOUTH 4 TIMES DAILY NEEDED Inhalation every 4 hrs for 50 days PRN Active Encounters Encounter Location Date Provider Diagnosis [facility] [address] [place] [address] 12/20/2024 Jalyn Hernández Asthma J45.909 Assessments Encounter Date Diagnosis (ICD Code) Assessment Notes Treatment Notes Treatment Clinical Notes Section Notes 12/20/2024 Asthma (ICD-10 - J45.909) Plan Of Treatment Medication Medication Name Sig Start Date Stop Date Notes Albuterol Sulfate HFA 108 (9 0 Base) MCG/ACT INHALE 2 PUFFS BY MOUTH 4 TIMES DAILY NEEDED Inhalation every 4 hrs for 50 days PRN Progress Notes * Lainey ROGER EDOB:1955 (69 yo F)Acc No.[id number]:12/20/2024 Patient: Rachelle STOVALL Lainey Snyder :1955 A ge:69 Y S ex:Female Address:[address] [place] [address] * Refills Refill Albuterol Sulfate HFA Aerosol Solution, 108 (90 Base) MCG/ACT, Inhalation, 2, INHALE 2 PUFFS BY MOUTH 4 TIMES DAILY NEEDED, every 4 hrs, 50 days, Refills=11 * true * Date: Generated for Maggie han/Danica/Chanel on: 0 01/28/2025 12:01 PM EDT
--- OUTSIDE RECORDS SUMMARY | 2025-01-28 07:00 | XMS_ITS ---
Author Organization [facility] [place] Address [address] [place] [address] Care Team Providers Care Helper Coordinator Name Role Phone Jalyn Hernández Primary Care Provider Allergies Allergen (clinical drug ingredient) Drug/Non Drug Allergy documented on EMR Reaction Allergy Type Onset Date Status montelukast Singulair nausea Drug Allergy Activ e ZyrTEC fatigue Drug Allergy Active REASON FOR VISIT wheezing, wants refill on prednisone, fall in dec fx pelvis, pt thinks fx clivical also stated bonenever stook out like that, back pain right lower side, constipation tried everything OTC 1 good BM in 2 weeks Medications Medication SIG (Take, Route, Frequency, Duration) Notes Start Date End Date Status Albuterol Sulfate HFA 108 (90 Base) MCG/ACT INHALE 2 PUFFS BY MOUTH 4 TIMES DAILY NEEDED Inhalation every 4 hrs for 50 days PRN Active Diclofenac Sodium 75 MG 1 tablet as need ed Orally Twice a day for 30 days 07/26/2024 Not-Taking predniSONE 10 MG TAKE 1-2 TABLETS BY MOUTH EVERY DAY*USE LOWEST EFFECTIVE DOSE NEEDED* for 30 days Active valACYclovir HCl 500 MG 2 tablet Orally twice a day Active Levothyroxine Sodium 150 MCG TAKE 1 TABLET BY MOUTH ONCE A DAY 30 MINUTES BEFORE EATING DIRECTED for 90 days Active Social History Tobacco Use: Social History Observation Description Date Details (start date - stop date) Former Smoker 08/08/1967 - 08/08/1999 Tobacco Use/Smoking Question Answer Notes Patient is a former smoker When did you start smoking? 08/08/1967 When did you stop smoking? 08/08/1999 Problems Problem Type SNOMED Code ICD Code Onset Dates Problem Status W/U Status Risk Notes Problem Constipation (K59.00) Active confirmed Vital Signs Weight 114.2 lbs 01/28/2025 Height 64 in 01/28/2025 Blood pressure systolic 142 mm Hg 01/29/20 25 Blood pressure diastolic 80 mm Hg 025 Heart Rate 83 /min 01/28/2025 BMI 19.6 kg/m2 01/28/2025 Oximetry 95 % 01/28/2025 Encounters Encounter Location Date Provider Diagnosis [facility] [address] [place] [address] 01/28/2025 Jalyn Hernández Asthma J45.909 ; Hypothyroid E03.9 and Constipation K59.00 Assessments Encounter Date Diagnosis (ICD Code) Assessment Notes Treatment Notes Treatment Clinical Notes Section Notes 01/28/2025 Asthma (ICD-10 - J45.909) airsupra sample 01/28/2025 Hypothyroid (ICD-10 - E03.9) 01/28/2025 Constipation (ICD-10 - K59.00) Plan Of Treatment Medication Medication Name Sig Start Date Stop Date Notes Albuterol Sulfate HFA 108 (9 0 Base) MCG/ACT INHALE 2 PUFFS BY MOUTH 4 TIMES DAILY NEEDED Inhalation every 4 hrs for 50 days PRN predniSONE 10 MG TAKE 1-2 TABLETS BY MOUTH EVERY DAY*USE LOWEST EFFECTIVE DOSE NEEDED* for 30 days Levothyroxine Sodium 150 MCG TAKE 1 TABL ET BY MOUTH ONCE A DAY 30 MINUTES BEFORE EATING DIRECTED for 90 days Treatment Notes Assessment Notes Asthma airsupra sample Pending Test Test Name Order Date HEMOGLOBIN A1C (GLYCO) 01/28/2025 IRON, TOTAL 01/28/2025 LIPID PANEL (CHOL/TRIG/HDL/LDL) 01/29/20 25 VITAMIN D, 25 LEVEL (TOTAL) 01/28/2025 Insulin Level 01/28/2025 THYROID PANEL (T4/TSH/FREE T3) 5 CMP (COMP MET PITTS) w/eGFR CKD-EPI 2024 CBC WITH DIFF 01/28/2025 Next Appt Details Follow Up: prn,6 Months, Chana son: Progress Notes * Lainey ROGER EDOB:1955 (69 yo F)Acc No.[id number]:01/28/2025 UNLOCKED PROGRESS NOTE Progress Note Patient: Lainey UNGER Provider: Seth Hernández ([facility]), MARINE DESIGNER :1955 A ge:69 Y S ex:Female Date:01/28/2025 [address] [id number] Check In:10:48 AM ESTCheck O ut:11:19 AM EST Subjective: * Chief Complaints: * 1 . Wheezing. 2. Wants refill on prednisone. 3. Fall in dec fx pelvis. 4. Pt thinks fx clivical also stated bone never stook out like that. 5. Back pain right lower side. 6. constipation tried everything OTC 1 good BM in 2 weeks. * HPI: G eneral: using prednisone prn albuterol discussed fall, pubic fx dexa due Dec recent constipation. * ROS: G eneral/Constitutional: Fever d enies. H eadache d enies. W eight loss?denies. O phthalmologic: Discharge d enies. E ye Pain d enies. I tching and redness d enies. E NT: Nasal discharge d enies. N laurel congestion d enies.?Sore throat d enies. C ardiovascular: Chest tightness/ heavy pressure d enies. R apid heart rate d enies. S welling of extremities d enies. C hest pain d enies. ? R espiratory: Productive cough d enies. C hest pain d enies. C ough d enies. S hortness of breath d enies. W heezing a t times. ? G astrointestinal: Abdominal pain d enies. C onstipation a dmits. D ecreased appetite d enies. D iarrhea d enies. N ausea d enies. V omiting d enies. G enitourinary: Urinary incontinence d enies. P ainful urination d enies. M usculoskeletal: Back pain d enies. N gonzalo pain d enies. M uscle aches d enies. S kin: Rash d enies. S kin lesion(s) d enies. ? * Medical History: A typical chest pain, Near syncope, Degeneration of intervertebral disc of lumbar region, snf systemic steroid user, Acquired absence of other organs, Asthma, Hypothyroidism, Cervical cancer, Displaced Posterior Left 9th rib fracture. * Surgical History: H ysterectomy , Splenectomy , gallbladder , appendectomy . * Hospitalization/Major Diagno stic Procedure: D enies Past Hospitalization. * Family History: F ather: , passed at 58 of legionnaires disease, diagnosed with Other malignant neoplasm of unspecified site. M other: , passed from punctured Aorta. B rother(s): alive, CVA, diagnosed with Unspecified heart disease. 2 brother(s) . . * Social History: T obacco Use: T obacco Use/Smoking P atient is a f ormer smoker W hen did you start smoking? 0 08/08/1967 W hen did you stop smoking? 0 08/08/1999 * Medications: T aking Albuterol Sulfate HFA 108 (90 Base) MCG/ACT Aerosol Solution INHALE 2 PUFFS BY MOUTH 4 TIMES DAILY NEEDED Inhalation every 4 hrs , Notes to Pharmacist: PRN, Taking Levothyroxine Sodium 150 MCG Tablet TAKE 1 TABLET BY MOUTH ONCE A DAY 30 MINUTES BEFORE EATING DIRECTED , Taking predniSONE 10 MG Tablet TAKE 1-2 TABLETS BY MOUTH EVERY DAY*USE LOWEST EFFECTIVE DOSE NEEDED* , Taking valACYclovir HCl 500 MG Tablet 2 tablet Orally twice a day , Not-Taking/PRN Diclofenac Sodium 75 MG Tablet Delayed Release 1 tablet as needed Orally Twice a day , Medication List reviewed and reconciled with the patient * Allergies: S ingulair: nausea, ZyrTEC: fatigue. Objective: * Vitals: W t:114.2lbs, Ht: 64 in, BP:142/80mm Hg, HR:83/min, BMI:19.6Index, Oxygen sat %:95%, Ht-cm: 162.56 cm, Wt-k.8 kg. * Examination: G eneral Examinations: GENERAL APPEARANCE: a lert and oriented, i n no acute distress. EYES: c onjunctiva normal, sclera non-icteric. NOSE: n ormal external appearance. LUNGS: c lear to auscultation bilaterally. CARDIO: r egular rate and rhythm, S1, S2 normal, no murmurs, no edema. ABDOMEN: s oft,, active bowel sounds. MUSCULOSKELETAL: G ait and station normal. SKIN: w arm and dry. Assessment: * Assessment: 1. A sta - J45.909 (Primary) 2 . H ypothyroid - E03.9 3 .?Constipation - K59.00 Plan: * Treatment: 2. H ypothyroid Refill Levothyroxine Sodium Tablet, 150 MCG, TAKE 1 TABLET BY MOUTH ONCE A DAY 30 MINUTES BEFORE EATING DIRECTED, 90 days, 90, Refills 3. L AB: HEMOGLOBIN A1C (GLYCO) L AB: IRON, TOTAL L AB: LIPID PANEL (CHOL/TRIG/HDL/LDL) L AB: VITAMIN D, 25 LEVEL (TOTAL) L AB: Insulin Level L AB: THYROID PANEL (T4/TSH/FREE T3) L AB: CMP (COMP MET PITTS) w/eGFR CKD-EPI L AB: CBC WITH DIFF * Preventive Medicine: Screenings/Counseling: F ALL RISK SCREENING Fall Risk Assessment: N o falls in the past year * Follow Up: p rn,6 Months * * Electronic signature of Ekta Torres NP, HULL [email or web address] on 01/28/2025 at 12:01 PM EDT Sign off status: Pending Visit Status: Gera MONTOYA (Check Out) * Provider: Seth Hernández ([facility]), MARINE DESIGNER Date: 01/28/2025 Generated for Printi ng/Famadelyng/eTransmitting on: 01/28/2025 12:01 PM EDT History and Physical Notes * HPI (History of Present Illness) Category Sub-Category Detail Notes Category Not es General using prednisone prn albuterol discussed fall, pubic fx dexa due Dec recent constipation Examination Category Sub-Category Detail Notes Category Not es General Examinations GENERAL APPEARANCE: alert a nd oriented, in no acute distress EYES: conjunctiva normal, sclera non-icteric EARS: NOSE: normal external appe arance THROAT: CARDIO: regular rate and rhy thm, S1, S2 normal, no murmurs, no edema LUNGS: clear to auscultatio n bilaterally ABDOMEN: soft,, active bowel sounds SKIN: warm and dry BACK: MUSCULOSKELETAL: Gait and station nor mal LYMPH NODES:
--- OUTSIDE RECORDS SUMMARY | 2025-01-28 12:01 | XMS_ITS | Patient Health Record ---
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 Name Role Phone Jalyn Hernández Primary Care Provider Colin Villa [phone] Allergies Allergen (clinical drug ingredient) Drug/Non Drug Allergy documented on EMR Reaction Allergy Type Onset Date Status montelukast Singulair nausea Drug Allergy Activ e ZyrTEC fatigue Drug Allergy Active Results Component Value Reference Range Notes XR clavicle RT Reviewed date:08/06/2024 08:23:48 AM Interpretation: Performing Lab: Notes/Report: Source Facility: [place] [id number] XRay Report Signed Patient: IDALMIS ROGER MR#: [id number] : 1955 Acct:[id number] Age/Sex: 69 / F ADM Date: 08/02/24 Loc: RAD Attending Dr: JALYN HERNÁNDEZ Ordering Physician: JALYN HERNÁNDEZ Date of Service: 08/02/24 Procedure(s): XR clavicle RT Accession Number(s): [id number] cc: JALYN HERNÁNDEZ [address] [address] Patient Name: IDALMIS ROGER MRN: [id number] date: 1955 Sex: F Assigned Patient Location: RAD Current Patient Location: RAD Accession/Order Number: [id number] Exam Date: 08/02/2024 13:15 Report Date: 08/02/2024 14:30 At the request of: JALYN HERNÁNDEZ Procedure: XR clavicle RT PROCEDURE: XR clavicle RT HISTORY: Clavicle Pain COMPARISON: None. FINDINGS: BONES:No fracture, dislocation, bone lesion, or periosteal reaction. Mild-moderate degenerative changes of the acromioclavicular joint. SOFT TISSUES:No visible soft tissue swelling. EFFUSION:None visible. OTHER: Negative. XR/XR clavicle RT IMPRESSION: 1. Mild-moderate degenerative changes of the acromioclavicular joint. 2. No acute or suspicious bone abnormality. Electronically authenticated by: SKY JOSHI Date: 08/02/2024 14:30 Dictated By: Sky Joshi M.D. Signed By: 08/02/24 143 DD/ 29 TD/TT: Door Puller: [place] [address] XRay Report Signed Patient: IDALMIS ROEGR MR#: [id number] : 1955 Acct:[id number] Age/Sex: 69 / F ADM Date: 08/02/24 Loc: [facility] Attending Dr: JALYN HERNÁNDEZ Ordering Physician: JALYN HERNÁNDEZ Date of Service: 08/02/24 Procedure(s): XR clavicle RT Accession Number(s): [id number] cc: JALYN HERNÁNDEZ [place] [address] Patient Name: IDALMIS ROGER MRN: [id number] date: 1955 Sex: F Assigned Patient Location: [facility] Current Patient Location: [facility] Accession/Order Numb er: [id number] Exam Date: 13:15 Report Date: 08/02/2024 14:30 At the request of: JALYN HERNÁNDEZ Procedure: XR clavicle RT PROCEDURE: XR clavicle RT HISTORY: Clavicle Pain COMPARISON: None. FINDINGS: BONES:No fracture, d islocation, bone lesion, or periosteal reaction. Mild-moderate degene rative changes of the acromioclavicular joint. SOFT TISSUES:No visi ble soft tissue swelling. EFFUSION:None visible. OTHER: Negative. X R/XR clavicle RT IMPRESSION: 1. Mild-moderate deg enerative changes of the acromioclavicular joint. 2. No acute or suspi cious bone abnormality. Electronically authe nticated by: SKY JOSHI Date: 08/02/2024 14:30 Dictated By: Sky Joshi M.D. Signed By: 08/02/24 1433 DD/ 143 TD/TT: Door Puller: CT PELVIS WO CON Reviewed date:08/06/2024 08:18:15 AM Interpretation: Performing Lab: Notes/Report: Source Facility: [place] [address] CT Scan Report Signed Patient: IDALMIS ROGER MR#: [id number] : 1955 Acct:[id number] Age/Sex: 69 / F ADM Date: 08/02/24 Loc: RAD Attending Dr: JALYN HERNÁNDEZ Ordering Physician: JALYN HERNÁNDEZ Date of Service: 08/02/24 Procedure(s): CT pelvis wo con Accession Number(s): [id number] cc: JALYN HERNÁNDEZ [place] [address] Patient Name: IDALMIS ROGER MRN: [id number] date: 1955 Sex: F Assigned Patient Location: [facility] Current Patient Location: ED.MAIN Accession/Order Number: [id number] Exam Date: 08/02/2024 13:15 Report Date: 08/03/2024 13:12 At the request of: JALYN HERNÁNDEZ Procedure: CT pelvis wo con EXAMINATION: CT pelvis wo con HISTORY: Right Hip Pain, Right Groin Wound COMPARISON: No relevant comparison available. TECHNIQUE: Axial, Coronal, and Sagittal images were obtained without and/or with IV contrast as indicated by examination type. Dose reduction techniques were achieved by using automated exposure control and/or adjustment of mA and/or kV according to patient size and/or use of iterative reconstruction technique FINDINGS: BOWEL: Diverticulosis of distal colon without acute inflammatory changes. LYMPH NODES: No adenopathy. URINARY BLADDER: No visible focal wall thickening, lesion, or calculus. PELVIC ORGANS: Hysterectomy. ANTERIOR WALL: No hernia. BONES: Minimally displaced fracture of the right superior pubic ramus near the pubic symphysis. No appreciable fracture of the inferior ramus. No adjacent hematoma. OTHER: Degenerative disc disease of L5-S1. CT/CT pelvis wo con IMPRESSION: 1. Acute, minimally displaced fracture of the right superior pubic ramus. No second fracture is identified. Electronically authenticated by: SKY JOSHI Date: 08/03/2024 13:12 Dictated By: Sky Joshi M.D. Signed By: 08/03/241313 DD/ 11 TD/TT: Door Puller: [place] [address] CT Scan Report Signed Patient: IDALMIS ROGER MR#: [id number] : 1955 Acct:[id number] Age/Sex: 69 / F ADM Date: 08/02/24 Loc: RAD Attending Dr: JALYN HERNÁNDEZ Ordering Physician: JALYN HERNÁNDEZ Date of Service: 08/02/24 Procedure(s): CT pelvis wo con Accession Number(s): [id number] cc: JALYN HERNÁNDEZ [place] [id number] Patient Name: IDALMIS ROGER MRN: [id number] date: 1955 Sex: F Assigned Patient Location: RAD Current Patient Loca tion: ED.MAIN Accession/Order Numb er: [id number] Exam Date: 13:15 Report Date: 08/03/2024 13:12 At the request of: JALYN HERNÁNDEZ Procedure: CT pelvis wo con EXAMINATION: CT pelvis wo con HISTORY: Right Hip P ain, Right Groin Wound COMPARISON: No relev ant comparison available. TECHNIQUE: Axial, Co johan, and Sagittal images were obtained without and/or with IV contrast as indicated by examination type. Dose reduction techniques were achieved by usi ng automated exposure control and/or adjustment of mA and/or kV according to patient size and/or use of iterative reconstruction technique FINDINGS: BOWEL: Diverticulosi s of distal colon without acute inflammatory changes. LYMPH NODES: No adenopathy. URINARY BLADDER: No visible focal wall thickening, lesion, or calculus. PELVIC ORGANS: Hysterectomy. ANTERIOR WALL: No hernia. BONES: Minimally dis placed fracture of the right superior pubic ramus near the pubic symphysis. No appreciable fracture of the inferior ramus. No adjacent hematoma. OTHER: Degenerative disc disease of L5-S1. C T/CT pelvis wo con IMPRESSION: 1. Acute, minimally displaced fracture of the right superior pubic ramus. No second fracture is identified. Electronically authe nticated by: SKY JOSHI Date: 08/03/2024 13:12 Dictated By: Sky Joshi M.D. Signed By: 08/03/241313 DD/ 11 TD/TT: Door Puller: XR sternum min 2V Reviewed date:07/24/2024 12:51:59 PM Interpretation: Performing Lab: Notes/Report: Source Facility: [place] [address] XRay Report Signed Patient: IDALMIS ROGER MR#: [id number] : 1955 Acct:[id number] Age/Sex: 69 / F ADM Date: 07/24/24 Loc: ER Attending Dr: Ordering Physician: Donny Arriaza M.D. Date of Service: 07/24/24 Procedure(s): XR sternum min 2V Accession Number(s): [id number] cc: JALYN HERNÁNDEZ ; Donny Arriaza M.D. [place] [address] Patient Name: IDALMIS ROGER MRN: [id number] date: 1955 Sex: F Assigned Patient Location: ER Current Patient Location: ER Accession/Order Number: [id number] Exam Date: 07/24/2024 10:35 Report Date: 07/24/2024 11:12 At the request of: DONNY ARRIAZA Procedure: XR sternum min 2V EXAMINATION: XR sternum min 2V HISTORY: fall COMPARISON: No relevant comparison available. FINDINGS: BONES: No definite fracture LUNGS: No appreciable pneumothorax or pleural thickening. OTHER: Negative. XR/XR sternum min 2V IMPRESSION: No acute fracture Electronically authenticated by: NAHID LOPEZ Date: 07/24/2024 11:12 Dictated By: Nahid Lopez M.D. Signed By: 07/24/241113 DD/ 11 TD/TT: Door Puller: [place] [address] XRay Report Signed Patient: IDALMIS ROGER MR#: [id number] : 1955 Acct:[id number] Age/Sex: 69 / F ADM Date: 07/24/24 Loc: ER Attending Dr: Ordering Physician: Donny Arriaza M.D. Date of Service: 07/24/24 Procedure(s): XR sternum min 2V Accession Number(s): [id number] cc: JALYN HERNÁNDEZ ; Donny Arriaza M.D. The [place] [address] Patient Name: IDALMIS ROGER MRN: [id number] date: 1955 Sex: F Assigned Patient Location: ER Current Patient Location: ER Accession/Order Numb er: [id number] Exam Date: 10:35 Report Date: 07/24/2024 11:12 At the request of: DONNY ARRIAZA Procedure: XR sternum min 2V EXAMINATION: XR sternum min 2V HISTORY: fall COMPARISON: No relev ant comparison available. FINDINGS: BONES: No definite fracture LUNGS: No appreciabl e pneumothorax or pleural thickening. OTHER: Negative. X R/XR sternum min 2V IMPRESSION: No acute fracture Electronically authe nticated by: NAHID LOPEZ Date: 07/24/2024 11:12 Dictated By: Nahid Lopez M.D. Signed By: 07/24/241113 DD/ 11 TD/TT: Door Puller: XR hip RT min 2V Reviewed date:07/24/2024 12:51:59 PM Interpretation: Performing Lab: Notes/Report: Source Facility: [facility] [place] [address] [place] [address] XRay Report Signed Patient: IDALMIS ROGER MR#: [id number] : 1955 Acct:[id number] Age/Sex: 69 / F ADM Date: 07/24/24 Loc: ER Attending Dr: Ordering Physician: Donny Arriaza M.D. Date of Service: 07/24/24 Procedure(s): XR hip RT min 2V Accession Number(s): [id number] cc: JALYN HERNÁNDEZ ; Donny Arriaza M.D. The [place] [address] Patient Name: IDALMIS ROGER MRN: [id number] date: 1955 Sex: F Assigned Patient Location: ER Current Patient Location: ER Accession/Order Number: [id number] Exam Date: 07/24/2024 10:35 Report Date: 07/24/2024 11:10 At the request of: DONNY ARRIAZA Procedure: XR hip RT min 2V PROCEDURE: XR hip RT min 2V COMPARISON: None. HISTORY: fall FINDINGS: BONES:No fracture, acute abnormality, or significant arthropathy. SOFT TISSUES:Negative. No visible soft tissue swelling. EFFUSION:None visible. OTHER: Negative. XR/XR hip RT min 2V IMPRESSION: No acute fracture Electronically authenticated by: NAHID LOPEZ Date: 07/24/2024 11:10 Dictated By: Nahid Lopez M.D. Signed By: 07/24/24 1113 DD/ 1110 TD/TT: Door Puller: [place] [address] XRay Report Signed Patient: IDALMIS ROGER MR#: [id number] : 1955 Acct:[id number] Age/Sex: 69 / F ADM Date: 07/24/24 Loc: ER Attending Dr: Ordering Physician: Donny Arriaza M.D. Date of Service: 07/24/24 Procedure(s): XR hip RT min 2V Accession Number(s): [id number] cc: JALYN HERNÁNDEZ ; Donny Arriaza M.D. The [place] [address] Patient Name: IDALMIS ROGER MRN: [id number] date: 1955 Sex: F Assigned Patient Location: ER Current Patient Location: ER Accession/Order Numb er: [id number] Exam Date: 10:35 Report Date: 07/24/2024 11:10 At the request of: DONNY ARRIAZA Procedure: XR hip RT min 2V PROCEDURE: XR hip RT min 2V COMPARISON: None. HISTORY: fall FINDINGS: BONES:No fracture, a cute abnormality, or significant arthropathy. SOFT TISSUES:Negativ e. No visible soft tissue swelling. EFFUSION:None visible. OTHER: Negative. X R/XR hip RT min 2V IMPRESSION: No acute fracture Electronically authe nticated by: NAHID LOPEZ Date: 07/24/2024 11:10 Dictated By: Nahid Lopez M.D. Signed By: 07/24/24 1113 DD/ 1110 TD/TT: Door Puller: XR ribs RT min 3V w CXR1V Reviewed date:07/24/2024 12:51:59 PM Interpretation: Performing Lab: Notes/Report: Source Facility: [place] [address] The [place] [id number] XRay Report Signed Patient: IDALMIS ROGER MR#: [id number] : 1955 Acct:[id number] Age/Sex: 69 / F ADM Date: 07/24/24 Loc: ER Attending Dr: Ordering Physician: Donny Arriaza M.D. Date of Service: 07/24/24 Procedure(s): XR ribs RT min 3V w CXR1V Accession Number(s): [id number] cc: JALYN HERNÁNDEZ ; Donny Arriaza M.D. The [address] [place] [id number] Patient Name: IDALMIS ROGER MRN: [id number] date: 1955 Sex: F Assigned Patient Location: ER Current Patient Location: ER Accession/Order Number: [id number] Exam Date: 07/24/2024 10:35 Report Date: 07/24/2024 11:14 At the request of: DONNY ARRIAZA Procedure: XR ribs RT min 3V w CXR1V EXAMINATION: XR ribs RT min 3V w CXR1V HISTORY: fall COMPARISON: No relevant comparison available. FINDINGS: LUNGS: No significant pulmonary parenchymal abnormalities. Hyperinflation PLEURA: No pneumothorax, effusion, or pleural thickening. MEDIASTINUM: No visible mass or adenopathy. CARDIAC: No cardiomegaly or cardiac silhouette abnormality. RIBS: No acute rib fracture OTHER: Negative. XR/XR ribs RT min 3V w CXR1V IMPRESSION: No acute rib fracture Electronically authenticated by: NAHID LOPEZ Date: 07/24/2024 11:14 Dictated By: Nahid Lopez M.D. Signed By: 07/24/24 1116 DD/ 1114 TD/TT: Door Puller: [place] [address] XRay Report Signed Patient: IDALMIS ROGER MR#: [id number] : 1955 Acct:[id number] Age/Sex: 69 / F ADM Date: 07/24/24 Loc: ER Attending Dr: Ordering Physician: Donny Arriaza M.D. Date of Service: 07/24/24 Procedure(s): XR rib s RT min 3V w CXR1V Accession Number(s): [id number] cc: JALYN HERNÁNDEZ ; Donny Arriaza M.D. [address] [id number] Patient Name: IDALMIS ROGER MRN: [id number] date: 1955 Sex: F Assigned Patient Location: ER Current Patient Location: ER Accession/Order Numb er: [id number] Exam Date: 10:35 Report Date: 07/24/2024 11:14 At the request of: DONNY ARRIAZA Procedure: XR ribs R T min 3V w CXR1V EXAMINATION: XR ribs RT min 3V w CXR1V HISTORY: fall COMPARISON: No relev ant comparison available. FINDINGS: LUNGS: No significan t pulmonary parenchymal abnormalities. Hyperinflation PLEURA: No pneumotho rax, effusion, or pleural thickening. MEDIASTINUM: No visi ble mass or adenopathy. CARDIAC: No cardiome osiel or cardiac silhouette abnormality. RIBS: No acute rib fracture OTHER: Negative. X R/XR ribs RT min 3V w CXR1V IMPRESSION: No acute rib fracture Electronically authe nticated by: NAHID LOPEZ Date: 07/24/2024 11:14 Dictated By: Nahid Lopez M.D. Signed By: 07/24/246 DD/ 13 TD/TT: Door Puller: Reason For Referral No Information Medications Medication SIG (Take, Route, Frequency, Duration) [...] 08/08/1967 When did you stop smoking? 08/08/1999 Alcohol Screen (Audit-C) Question Answer Notes Did you have a drink containing alcohol in the p ast year? 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 Problem Asthma (913155922) Asthma (J45.909) Active confirmed Problem Hypothyroid (52769818) Hypothyroid (E03.9) Active confirmed Problem Constipation (98684741) Constipation (K59.00) Active confirmed Problem Osteoporosis (70329101) Osteoporosis (M81.0) Active confirmed Problem Degeneration of lumbar intervertebral disc (59225190) Degeneration of intervertebral disc of lumbar region (M51.36) Active confirmed Problem Closed fracture pubis (540023200) Fracture of pubic ramus, right, closed, initial encounter (S32.591A) Active confirmed Problem 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 ([id number] 3) 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 (Z79.52) Active confirmed Vital Signs Heart Rate 83 /min 01/28/2025 Oximetry 95 % 01/28/2025 Blood pressure diastolic 80 mm Hg 01/28/2025 Height 64 in 01/28/2025 Blood pressure systolic 142 mm Hg 01/28/2025 Weight 114.2 lbs 01/28/2025 BMI 19.6 kg/m2 01/28/2025 Encounters Encounter Location Date Provider Diagnosis [facility] [address] [place] [address] 07/26/2024 Jalyn Hernández [facility] [address] [place] [address] 08/02/2024 Jalyn Hernández Right hip pain M25.5 51 ; Right groin wound S31.109A and Clavicle pain M89.8X1 [facility] [address] [place] [address] 08/03/2024 Colin Villa [facility] [address] [place] [address] 10/04/2024 Jalyn Hernández [facility] [address] [place] [address] 12/20/2024 Jalyn Hernández Asthma J45.909 [facility] [address] [place] [address] 07/07/2024 Jalyn Hernández [facility] [address] [place] [address] 07/26/2024 Jalyn Hernández [facility] [address] [place] [address] 07/23/2024 Jalyn Hernández Asthma J45.909 and Hypothyroid E03.9 [facility] [address] [place] [address] 01/28/2025 Jalyn Hernández Asthma J45.909 ; Hypothyroid E03.9 and Constipation K59.00 Assessments Encounter Date Diagnosis (ICD Code) Assessment Notes Treatment Notes Treatment Clinical Notes Section Notes 07/23/2024 Asthma (ICD-10 - J45.909) trelegy sample given, notify office if helping, will try for rx 07/23/2024 Hypothyroid (ICD-10 - E03.9) labs ordered 01/28/2025 Asthma (ICD-10 - J45.909) airsupra sample 01/28/2025 Hypothyroid (ICD-10 - E03.9) 08/02/2024 Right hip pain (ICD-10 - M25.551) 08/02/2024 Right groin wound (ICD-10 - S31.109A) 12/20/2024 Asthma (ICD-10 - J45.909) 08/02/2024 Clavicle pain (ICD-10 - M89.8X1) 01/28/2025 Constipation (ICD-10 - K59.00) 07/23/2024 Other continue monitor bp Plan Of Treatment Pending Test Test Name Order Date CMP (COMPLETE METABOLIC PANEL) 3 CMP (COMPLETE METABOLIC PANEL) 4 HEMOGLOBIN A1C (GLYCO) 07/23/2024 HEMOGLOBIN A1C (GLYCO) 01/28/2025 HEMOGLOBIN A1C (GLYCO) 06/23/2023 INSULIN, TOTAL 07/23/2024 IRON, TOTAL 06/23/2023 IRON, TOTAL 01/28/2025 LIPID PANEL (CHOL/TRIG/HDL/LDL) 06/23/20 23 LIPID PANEL (CHOL/TRIG/HDL/LDL) 07/23/20 24 LIPID PANEL (CHOL/TRIG/HDL/LDL) 01/29/20 25 CBC WITH DIFF 07/23/2024 CBC WITH DIFF 06/23/2023 VITAMIN D, 25 LEVEL (TOTAL) 06/23/2023 VITAMIN D, 25 LEVEL (TOTAL) 01/28/2025 Insulin Level 06/23/2023 Insulin Level 01/28/2025 STOOL OCCULT BLOOD 06/23/2023 XR DEXA BONE DENSITY 07/13/2023 THYROID PANEL (T4/TSH/FREE T3) 5 THYROID PANEL (T4/TSH/FREE T3) 3 THYROID PANEL (T4/TSH/FREE T3) 4 XR lumbar spine 2-3V 07/11/2023 CMP (COMP MET PITTS) w/eGFR CKD-EPI 2024 CBC WITH DIFF 01/28/2025 Insurance Providers Payer Name Payer Address Payer Phone Subscriber Number Group Number Insured Name Patient Relationship to Insured Coverage Start Date Coverage End Date [place]IC[place] [address] [place] [address] [phone] [id number] Idalmis Roger Self - patient is the insured Medical (General) History Medical History History ICD Code Atypical chest pain R07.89 Near syncope R55 Degeneration of intervertebral disc of l umbar region M51.36 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
--- OUTSIDE RECORDS SUMMARY | 2025-01-28 12:02 | XMS_ITS | Clinical Summary ---
Author Organization [facility] Address [address] [place] [address] Care Team Providers Care Pilot Steam Yacht Name Role Phone Dennis RAMÍREZ MD, Daniel B Primary Care Provider [phone] Medications ADVAIR DISKUS 100 MCG-50 MCG/DOSE INHL DSDV 0 03/23/2005 Active SYNTHROID 125 MCG ORAL TAB 0 03/23/2005 Active Active Problems Problem Noted Date Diagnosed Date BENIGN MELANOCYTIC NEVI 03/23/2005 L[place]IGO 03/23/2005 [place] 03/23/2005 Social History Tobacco Use Types Packs/Day Years Used Date Smoking Tobacco: Never Assessed Comments Unknown Sex and Gender Information Value Date Recorded Sex Assigned at Not on file Legal Sex Female 7:31 AM EST Gender Identity Not on file Sexual Orientation Not on file Plan of Treatment Health Maintenance Due Date Last Done Comments Anxiety Screening 1972 Depression Screening 1972 Hepatitis C Screening 1972 DTaP,Tdap,Td Vaccine (1 - Tdap) [address] Colonography 1999 Cologuard (FIT-DNA) 1999 Colonoscopy 1999 Colorectal Cancer Screening 1999 Diabetes Screening 1999 Fecal Occult Blood 1999 Lipid Screening 1999 Sigmoidoscopy 1999 Pneumococcal Vaccine: 50+ (1 of 1 - PCV) 2004 Shingrix Vaccine (1 of 2) 2004 Bone Density Screening 2019 Covid-19 Vaccine (1 - 2023- season) 2024 Advance Directive Discussion 08/08/2024 Influenza Vaccine (Season Ended) 2025 RSV Vaccine (1 - 1-dose 75+ series) 2029 Insurance O [employer] PPO Care Teams Pilot Steam Yacht Relationship Specialty Start Date End Date Emilio Collnis II, MD [address] COUNT INCLUDES THE [facility] [address] [place] [address] PCP - General 03/17/05
--- OUTSIDE RECORDS SUMMARY | 2025-01-28 12:02 | XMS_ITS | Clinical Summary ---
Author Organization [facility] Address [address] [place] [address] Care Team Providers Care Development Rep Name Role Phone Unavailable Primary Care Provider Unavailabl e Social History Tobacco Use Types Packs/Day Years Used Date Smoking Tobacco: Never Assessed [place] Safety & Environment Answer Date Rec orded Fear of Current or Ex-Partner Not on file Emotionally Abused Not on file 09/29/2023 Physically Abused Not on file 09/29/2023 Sexually Abused Not on file 09/29/2023 Physically or Sexually Abused Not on file Comments Unknown Sex and Gender Information Value Date Recorded Sex Assigned at Not on file Legal Sex Female 11:16 PM EDT Gender Identity Not on file Sexual Orientation Not on file Plan of Treatment Not on file
--- OUTSIDE RECORDS SUMMARY | 2025-01-28 12:02 | XMS_ITS | Referral Summary ---
Author Organization [facility] Address [address] [place] [address] Care Team Providers Care Incinerator Attendant Name Role Phone Unavailable Primary Care Provider [...]
[2025-01-28 12:46] LABS: Basophils Absolute Auto 0.1 10^3/uL (0.0-0.1); Basophils Percent Auto 0.5 % (0.2-2.0); Eosinophils Absolute Auto 0.2 10^3/uL (0.0-0.7); Eosinophils Percent Auto 1.3 % (0.9-7.0); Hematocrit 44.3 % (36.0-48.0); Hemoglobin 15.4 g/dL (12.0-16.0); Immature Granulocytes Abs Auto 0.07 10^3/uL (0.00-0.03); Immature Granulocytes Pct Auto 0.4 % (0.0-0.5); Lymphocytes Absolute Auto 4.5 10^3/uL (1.2-3.8); Lymphocytes Percent Auto 28.2 % (20.5-60.0); Mean Corpuscular HGB Conc 34.8 g/dL (29.9-35.2); Mean Corpuscular Volume 112.2 fL (81.0-99.0); Mean Platelet Volume 9.5 fL (9.5-13.5); Monocytes Absolute Auto 1.4 10^3/uL (0.3-0.8); Monocytes Percent Auto 8.9 % (1.7-12.0); Neutrophils Absolute Auto 9.7 10^3/uL (1.4-6.5); Neutrophils Percent Auto 60.7 % (43.0-75.0); Platelet Count 331 10^3/uL (150-450); Red Blood Count 3.95 10^6/uL (4.20-5.40)
[2025-01-28 12:52] LABS: Estimated Average Glucose 117 mg/dL; Glycohemoglobin A1C 5.7 % (4.5-6.2)
[2025-01-28 12:57] LABS: Red Cell Distribution Width 14.7 % (11.0-15.0)
[2025-01-28 13:23] LABS: Alanine Aminotransferase 22 U/L (14-59); Albumin Globulin Ratio 1.1; Albumin Level 3.5 g/dL (3.4-5.0); Alkaline Phosphatase 65 U/L (46-116); Anion Gap 10.6; Aspartate Amino Transferase 17 U/L (15-37); Bilirubin Total 0.4 mg/dL (0.2-1.0); Calcium 9.6 mg/dL (8.5-10.1); Carbon Dioxide 34.2 mmol/L (21.0-32.0); Chloride 103 mmol/L (98-107); Chol HDL Ratio 2.2; Cholesterol 231 mg/dL (<=200); Estimated GFR (African America >60 (>=60 mL/min/1.73m^2); Estimated GFR (Non-African Ame >60 (>=60 mL/min/1.73m^2); Free T3 2.06 pg/mL (2.18-3.98); Globulin 3.2 g/dL; Glucose 87 mg/dL (74-106); HDL Cholesterol 104 mg/dL (40-60); Potassium 3.8 mmol/L (3.5-5.1); Sodium 144 mmol/L (136-145); Thyroid Stimulating Hormone 2.602 uIU/mL (0.358-3.740); Total Protein 6.7 g/dL (6.4-8.2); Triglycerides 121 mg/dL (<=150); VLDL CHOLESTEROL 24.2 mg/dL
[2025-01-29 05:07] LABS: Insulin 5.8 uIU/mL (2.6-24.9)
== END 2025-01-28 11:49 | disposition home or self-care (01) ==
LOC: LAB 11:59
PROVIDERS: PCP Nurse Practitioner Family; Visit Provider Nurse Practitioner Family
DX: E03.9 Hypothyroidism, unspecified (principal)
CPT/HCPCS: 36415; 80053; 80061; 82306; 83036; 83525; 83540; 84436; 84443; 84481; 85025

== ENCOUNTER 2025-02-07 11:53 | Outpatient (OUT) | payer MEDICARE, SELFPAY ==
--- OUTSIDE RECORDS SUMMARY | 2025-01-28 07:00 | XMS_ITS ---
Author Organization [facility] in [place] Address [address] [place] [address] Care Team Providers Care Financial Planning Assistant Name Role Phone Jalyn Hernández Primary Care [...] Status W/U Status Risk Notes Problem Constipation ([id number]) Constipation (K59.00) Active confirmed Vital Signs Blood pressure systolic 142 mm Hg 01/29/20 25 Blood pressure diastolic 80 mm Hg 025 Heart Rate 83 /min 01/28/2025 Height 64 in 01/28/2025 Weight 114.2 lbs 01/28/2025 BMI 19.6 kg/m2 01/28/2025 Oximetry 95 % 01/28/2025 Encounters Encounter Location Date Provider Diagnosis [facility] [address] [place] [address] 01/28/2025 Jalyn Paredesmer Asthma J45.909 ; Hypothyroid E03.9 and Constipation [...] Insulin Level 01/28/2025 THYROID PANEL (T4/TSH/FREE T3) CMP (COMP MET PITTS) w/eGFR CKD-EPI 2024 CBC WITH DIFF 01/28/2025 Next Appt Details Follow Up: prn,6 Months, Chana son: Progress Notes * Lainey ROGER EDOB:1955 (69 yo F)Acc No.[id number]:01/28/2025 Progress Note Patient: Lainey UNGER Provider: Seth Hernández ([facility]), INSPECTOR TOYS :1955 A ge:69 Y S ex:Female Date:01/28/2025 [address] [id number] Check In:10:48 AM ESTCheck O ut:11:19 AM [...] enies. H eadache d enies. W eight loss�denies. O phthalmologic: Discharge d enies. E ye Pain d enies. I tching and redness d enies. E NT: Nasal discharge d enies. N laurel congestion d enies.�Sore throat d enies. C ardiovascular: Chest tightness/ heavy pressure d enies. R apid heart rate d enies. S welling of extremities d enies. C hest pain d enies. � R espiratory: Productive cough d enies. C hest pain d enies. C ough d enies. S hortness of breath d enies. W heezing a t times. � G astrointestinal: Abdominal pain d enies. C [...] d enies. S kin lesion(s) d enies. 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 Modified On:06/23/2023 Status:confirmed M51.34 Other intervertebral disc degeneration, thoracic region Modified On:07/11/2023 Status:confirmed M81.0 Osteoporosis Modified On:07/21/2023U Status:confirmed E03.9 Hypothyroid Modified On:07/23/2024U Status:confirmed S32.591A Fracture of pubic ra mus, right, closed, initial encounter Modified On:08/03/2024 Status:confirmed K59.00 Constipation Modified On:01/28/2025 Status:confirmed D72.829 Elevated WBC count Modified On:01/29/2025 Status:confirmed * Medical History: A typical chest pain, Near syncope, Degeneration of intervertebral disc of lumbar region, 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 Assessment: * Assessment: 1. A sthma - J45.909 (Primary) 2 . H ypothyroid - E03.9 3 .�Constipation - K59.00 Plan: * Treatment: 2. H [...] the past year * Follow Up: p ana luisa,6 Months * * Electronically signed by Jillian Hernández , DEVELOPMENT LEAD, BRAILLE DUPLICATING MACHINE [email or web address] on 01/29/2025 at 01:47 PM EDT Sign off status: Completed Visit Status: C HK (Check Out) true * Provider: Seth Hernández ([facility]), INSPECTOR TOYS Date: 0 01/28/2025 Generated for Maggie han/Danica/eTransmitting on: 0 02/07/2025 11:58 AM EDT History and Physical Notes * HPI [...]
--- OUTSIDE RECORDS SUMMARY | 2025-01-29 05:36 | XMS_ITS ---
Author Organization [facility] [place] Address [address] [place] [address] Care Team Providers Care Centrifuge Separator Operator Name Role Phone Jalyn Hernández Primary Care Provider Problems Problem Type SNOMED Code ICD Code Onset Dates Problem Status W/U Status Risk Notes Problem Elevated WBC count (D72.829) Active confirmed Encounters Encounter Location Date Provider Diagnosis [facility] [address] [place] [address] 01/29/2025 Jalyn Hernández Elevated WBC count D72.829 Assessments Encounter Date Diagnosis (ICD Code) Assessment Notes Treatment Notes Treatment Clinical Notes Section Notes 01/29/2025 Elevated WBC count (ICD-10 - D72.829) Plan Of Treatment Pending Test Test Name Order Date CBC AUTO DIFF 01/29/2025 Progress Notes * Lainey ROGER EDOB:1955 (69 yo F)Acc No.[id number]:01/29/2025 Patient: Lainey UNGER :1955 A ge:69 Y S ex:Female Address:[address] [place] [address] Subjective: * Chief Complaints: * * Medical History: * Surgical History: * Hospitalization/Major Diagno stic Procedure: * Medications: Objective: * Vitals: * Physical Examination: Assessment: * Assessment: 1. E levated WBC count - D72.829 (Primary) Plan: * Treatment: * Procedure Codes: * true * Date: Generated for Printi ng/Faxing/eTransmitting on: 0 02/07/2025 11:58 AM EDT
--- OUTSIDE RECORDS SUMMARY | 2025-02-07 07:09 | XMS_ITS ---
Author Organization The [facility] in [place] Address [address] [place] [address] Care Team Providers Care In Service Coordinator Name Role Phone Jalyn Hernández Primary Care Provider [phone] REASON FOR VISIT back pain Encounters Encounter Location Date Provider Diagnosis [facility] [address] [place] [address] 02/07/2025 Jalyn Hernández Back pain M54.9 Assessments Encounter Date Diagnosis (ICD Code) Assessment Notes Treatment Notes Treatment Clinical Notes Section Notes 02/07/2025 Back pain (ICD-10 - M54.9) Plan Of Treatment Pending Test Test Name Order Date XR lumbar spine 2-3V 02/07/2025 XR thoracic spine 2V 02/07/2025 Progress Notes * Lainey BENNETT EDOB:1955 (69 yo F)Acc No.[id number]:02/07/2025 Patient: Lainey UNGER :1955 A ge:69 Y S ex:Female Address:[address] [place] [address] Subjective: * Chief Complaints: * B ack pain * Medical History: * Surgical History: * Hospitalization/Major Diagno stic Procedure: * Medications: Objective: * Vitals: * Physical Examination: Assessment: * Assessment: 1. B ack pain - M54.9 (Primary) Plan: * Treatment: * Procedure Codes: * true * Date: Generated for Printi ng/Faxing/eTransmitting on: 0 02/07/2025 11:58 AM EDT
--- OUTSIDE RECORDS SUMMARY | 2025-02-07 11:58 | XMS_ITS | Patient Health Record ---
Author Organization The [facility] in [place] Address [address] [place] [address] Care Team Providers Care Billing Coordinator Name Role Phone Jalyn Hernández Primary Care Provider Colin Villa [phone] Allergies Allergen (clinical drug ingredient) Drug/Non Drug Allergy documented on EMR Reaction Allergy Type Onset Date Status montelukast Singulair nausea Drug Allergy Activ e ZyrTEC fatigue Drug Allergy Active Results Component Value Reference Range Notes XR ribs RT min 3V w CXR1V Reviewed date:07/24/2024 12:51:59 PM Interpretation: Performing Lab: Notes/Report: Source Facility: [place] [address] XRay Report Signed Patient: LAINEY ROGER MR#: [id number] : 1955 Acct:[id number] Age/Sex: 69 / F ADM Date: 07/24/24 Loc: ER Attending Dr: Ordering Physician: Donny Arriaza M.D. Date of Service: 07/24/24 Procedure(s): XR ribs RT min 3V w CXR1V Accession Number(s): [id number] cc: JALYN HERNÁNDEZ ; Donny Arriaza M.D. [place] [id number] Patient Name: LAINEY ROGER MRN: [id number] date: 1955 Sex: F Assigned Patient Location: ER Current Patient Location: ER Accession/Order Number: [id number] Exam Date: 07/24/2024 10:35 Report Date: 07/24/2024 [...] Dictated By: Nahid Lopez M.D. Signed By: 07/24/241115 DD/ 13 TD/TT: Cafeteria Operator: [place] [address] XRay Report Signed Patient: LAINEY ROGER MR#: [id number] : 1955 Acct:[id number] Age/Sex: 69 / F ADM Date: 07/24/24 Loc: ER Attending Dr: Ordering Physician: Donny Arriaza M.D. Date of Service: 07/24/24 Procedure(s): XR rib s RT min 3V w CXR1V Accession Number(s): [id number] cc: JALYN HERNÁNDEZ ; Donny Arriaza M.D. The [place] [id number] Patient Name: LAINEY ROGER MRN: [id number] date: 1955 Sex: F Assigned Patient Location: ER Current Patient Location: ER Accession/Order Numb er: [id number] Exam Date: 10:35 Report Date: 07/24/2024 11:14 [...] NAHID LOPEZ Date: 07/24/2024 11:14 Dictated By: Tiago Lopez M.D. Signed By: 07/24/241115 DD/ 13 TD/TT: Cafeteria Operator: FREE T3 Reviewed date:01/29/2025 09:32:41 AM Interpretation: Performing Lab: Notes/Report: [facility] , Free T3 2.06 2.18-3.98 pg/mL Performing Lab: see note - [facility] LB INSULIN Reviewed date:01/29/2025 09:32:41 AM Interpretation: Performing Lab: Notes/Report: [facility] , Insulin 5.8 2.6-24.9 uIU/mL Performed at: - [facility] [place] [id number] Health Promotion Manager: Rafal Mehta PhD, Phone: [phone] Performing Lab: see note - [facility] LB IRON Reviewed date:01/29/2025 09:32:41 AM Interpretation: Performing Lab: Notes/Report: [facility] , Iron 121.0 50.0-170.0 ug/dL Performing Lab: see note - [facility] LB LIPID PROFILE Reviewed date:01/29/2025 09:32:41 AM Interpretation: Performing Lab: Notes/Report: [facility] , Triglycerides 121 <=150 mg/dL Cholesterol 231 <=200 mg/dL HDL Cholesterol 104 40-60 mg/dL > or =60 mg/dl - LOW CARDIOVASCULAR RISK <40 mg/dl - HIGH CARDIOVASCULAR RISK LDL Cholesterol Calculated 103.0 <100 mg/dl OPTIMAL 100-129 mg/dl NEAR OR ABOVE OPTIMAL 130-159 mg/dl BORDERLINE HIGH 160-189 mg/dl HIGH >190 mg/dl VERY HIGH VLDL CHOLESTEROL 24.2 Chol HDL Ratio 2.2 3.3 - 4.4 LOW RISK 4.4 - 7.1 AVERAGE RISK 7.1 - 11.0 MODERATE RISK >11.0 HIGH RISK Performing Lab: see note ML - [facility] LB PROF 14(COMP METB) Reviewed date:01/29/2025 09:32:41 AM Interpretation: Performing Lab: Notes/Report: [facility] , Sodium 144 136-145 mmol/L Potassium 3.8 3.5-5.1 mmol/L Chloride 103 98-107 mmol/L Carbon Dioxide 34.2 21.0-32.0 mmol/L Anion Gap 10.6 Glucose 87 74-106 mg/dL Blood Urea Nitrogen 15.0 7.0-18.0 mg/dL Creatinine 0.79 0.55-1.02 mg/dL Estimated GFR ( Joanne >60 >=60 mL/min/1.73m 2 Estimated GFR (Non- Paola >60 >=60 mL/min/1.73m 2 BUN Creatinine Ratio 19.0 Calcium 9.6 8.5-10.1 mg/dL Bilirubin Total 0.4 0.2-1.0 mg/dL Aspartate Amino Transferase 17 15-37 U/L Alanine Aminotransferase 22 14-59 U/L Alkaline Phosphatase 65 46-116 U/L Total Protein 6.7 6.4-8.2 g/dL Albumin Level 3.5 3.4-5.0 g/dL Globulin 3.2 Albumin Globulin Ratio 1.1 Performing Lab: see note ML - [facility] LB T4 Reviewed date:01/29/2025 09:32:41 AM Interpretation: Performing Lab: Notes/Report: [facility] , T4 Thyroxine 9.90 4.80-13.90 ug/dL Performing Lab: see note ML - [facility] LB TSH Reviewed date:01/29/2025 09:32:41 AM Interpretation: Performing Lab: Notes/Report: [facility] , Thyroid Stimulating Hormone 2.602 0.358-3.740 uIU/mL Performing Lab: see note ML - [facility] LB VITAMIN D 25 [place] Reviewed date:01/29/2025 09:32:41 AM Interpretation: Performing Lab: Notes/Report: [facility] , Vitamin D 47.8 <20 ng/mL Vit D deficient 20-<30 ng/mL Vit D insufficient 30-100 ng/mL Vit D sufficient >100 ng/mL Potential Toxicity Performing Lab: see note ML - [facility] LB XR sternum min 2V Reviewed date:07/24/2024 12:51:59 PM Interpretation: Performing Lab: Notes/Report: Source Facility: [facility] [place] [address] [place] [address] XRay Report Signed Patient: LAINEY ROGER MR#: [id number] : 1955 Acct:[id number] Age/Sex: 69 / F ADM Date: 07/24/24 Loc: ER Attending Dr: Ordering Physician: Donny Arriaza M.D. Date of Service: 07/24/24 Procedure(s): XR sternum min 2V Accession Number(s): [id number] cc: JALYN HENRÁNDEZ ; Donny Arriaza M.D. The [place] [address] Patient Name: LAINEY ROGER MRN: [id number] date: 1955 Sex: F Assigned Patient Location: ER Current Patient Location: ER Accession/Order Number: [id number] Exam Date: 07/24/2024 10:35 Report Date: 07/24/2024 [...] M.D. Signed By: 07/24/241113 DD/ 11 TD/TT: Cafeteria Operator: [place] [address] XRay Report Signed Patient: LAINEY ROGER MR#: [id number] : 1955 Acct:[id number] Age/Sex: 69 / F ADM Date: 07/24/24 Loc: ER Attending Dr: Ordering Physician: Donny Arriaza M.D. Date of Service: 07/24/24 Procedure(s): XR aubrey rnum min 2V Accession Number(s): [id number] cc: JALYN HERNÁNDEZ ; Donny Arriaza M.D. The [place] [address] Patient Name: LAINEY ROGER MRN: [id number] date: 1955 Sex: F Assigned Patient Location: ER Current Patient Location: ER Accession/Order Numb er: [id number] Exam Date: 10:35 Report Date: 07/24/2024 11:12 At the request of: DONNY ARRIAZA Procedure: XR sternu m min 2V EXAMINATION: XR ster num min 2V HISTORY: fall COMPARISON: No relev ant comparison available. FINDINGS: BONES: No definite fracture LUNGS: No appreciabl e pneumothorax or pleural thickening. OTHER: Negative. X R/XR sternum min 2V IMPRESSION: No acute fracture Electronically authenticated by: NAHID LOPEZ Date: 07/24/2024 11:12 Dictated By: Tiago Lopez M.D. Signed By: 07/24/24 1114 DD/ 1112 TD/TT: Cafeteria Operator: XR hip RT min 2V Reviewed date:07/24/2024 12:51:59 PM Interpretation: Performing Lab: Notes/Report: Source Facility: [place] [address] [place] [address] XRay Report Signed Patient: LAINEY ROGER MR#: [id number] : 1955 Acct:[id number] Age/Sex: 69 / F ADM Date: 07/24/24 Loc: ER Attending Dr: Ordering Physician: Donny Arriaza M.D. Date of Service: 07/24/24 Procedure(s): XR hip RT min 2V Accession Number(s): [id number] cc: SYBIL,JALYNDonny Blum M.D. [address] [id number] Patient Name: LAINEY ROGER MRN: [id number] date: 1955 Sex: F Assigned Patient Location: ER Current Patient Location: ER Accession/Order Number: [id number] Exam Date: 07/24/2024 10:35 Report Date: 07/24/2024 [...] Signed By: 07/24/24 1113 DD/ 1110 TD/TT: Cafeteria Operator: The [address] [address] XRay Report Signed Patient: LAINEY ROGER MR#: [id number] : 1955 Acct:[id number] Age/Sex: 69 / F ADM Date: 07/24/24 Loc: ER Attending Dr: Ordering Physician: Donny Arriaza M.D. Date of Service: 07/24/24 Procedure(s): XR hip RT min 2V Accession Number(s): [id number] cc: JALYN HERNÁNDEZ Jeffery D M.D. The [address] [address] Patient Name: LAINEY ROGER MRN: [id number] date: 1955 Sex: F Assigned Patient Location: ER Current Patient Location: ER Accession/Order Numb er: [id number] Exam Date: 10:35 Report Date: 07/24/2024 11:10 At the request of: DONNY D KATKO Procedure: XR hip RT min 2V PROCEDURE: XR hip RT min 2V COMPARISON: None. HISTORY: fall FINDINGS: BONES:No fracture, a cute abnormality, or significant arthropathy. SOFT TISSUES:Negativ e. No visible soft tissue swelling. EFFUSION:None visible. OTHER: Negative. X R/XR hip RT min 2V IMPRESSION: No acute fracture Electronically authenticated by: NAHID LOPEZ Date: 07/24/2024 11:10 Dictated By: Tiago Lopez M.D. Signed By: 07/24/24 1113 DD/ 1110 TD/TT: Cafeteria Operator: XR clavicle RT Reviewed date:08/06/2024 08:23:48 AM Interpretation: Performing Lab: Notes/Report: Source Facility: [place] [address] XRay Report Signed Patient: LAINEY ROGER MR#: [id number] : 1955 Acct:[id number] Age/Sex: 69 / F ADM Date: 08/02/24 Loc: [facility] Attending Dr: JALYN HERNÁNDEZ Ordering Physician: JALYN HERNÁNDEZ Date of Service: 08/02/24 Procedure(s): XR clavicle RT Accession Number(s): [id number] cc: JALYN HERNÁNDEZ [place] [address] Patient Name: LAINEY ROGER MRN: [id number] date: 1955 Sex: F Assigned Patient Location: [facility] Current Patient Location: [facility] Accession/Order Number: [id number] Exam Date: 08/02/2024 13:15 Report Date: 08/02/2024 [...] Dictated By: Sky Joshi M.D. Signed By: 08/02/241432 DD/ 29 TD/TT: Cafeteria Operator: [place] [address] XRay Report Signed Patient: LAINEY ROGER MR#: [id number] : 1955 Acct:[id number] Age/Sex: 69 / F ADM Date: 08/02/24 Loc: [facility] Attending Dr: JALYN HERNÁNDEZ Ordering Physician: JALYN HERNÁNDEZ Date of Service: 08/02/24 Procedure(s): XR clavicle RT Accession Number(s): [id number] cc: JALYN HERNÁNDEZ [place] [id number] Patient Name: LAINEY ROGER MRN: [id number] date: 1955 Sex: F Assigned Patient Location: [facility] Current Patient Location: [facility] Accession/Order Numb er: [id number] Exam Date: 13:15 Report Date: 08/02/2024 14:30 At the request of: JALYN HERNÁNDEZ Procedure: XR clavic le RT PROCEDURE: XR clavic le RT HISTORY: Clavicle Pain COMPARISON: None. FINDINGS: BONES:No fracture, dislocation, bone lesion, or periosteal reaction. Mild-moderate degenerative changes of the acromioclavicular joint. SOFT TISSUES:No visi ble soft tissue swelling. EFFUSION:None visible. OTHER: Negative. X R/XR clavicle RT IMPRESSION: 1. Mild-moderate degenerative changes of the acromioclavicular joint. 2. No acute or suspicious bone abnormality. Electronically authenticated by: SKY JOSHI Date: 08/02/2024 14:30 Dictated By: Sky Joshi M.D. Signed By: 08/02/241432 DD/ 1430 TD/TT: Cafeteria Operator: CT PELVIS WO CON Reviewed date:08/06/2024 08:18:15 AM Interpretation: Performing Lab: Notes/Report: Source Facility: [place] [address] CT Scan Report Signed Patient: LAINEY ROGER MR#: [id number] : 1955 Acct:[id number] Age/Sex: 69 / F ADM Date: 08/02/24 Loc: RAD Attending Dr: JALYN HERNÁNDEZ Ordering Physician: JALYN HERNÁNDEZ Date of Service: 08/02/24 Procedure(s): CT pelvis wo con Accession Number(s): [id number] cc: JALYN HERNÁNDEZ [place] [address] Patient Name: LAINEY ROGER MRN: [id number] date: 1955 Sex: F Assigned Patient Location: [facility] Current Patient Location: ED.MAIN Accession/Order Number: [id number] Exam Date: 08/02/2024 13:15 Report Date: 08/03/2024 [...] M.D. Signed By: 08/03/241313 DD/ 11 TD/TT: Cafeteria Operator: [place] [address] CT Scan Report Signed Patient: LAINEY ROGER MR#: [id number] : 1955 Acct:[id number] Age/Sex: 69 / F ADM Date: 08/02/24 Loc: RAD Attending Dr: JALYN HERNÁNDEZ Ordering Physician: JALYN HERNÁNDEZ Date of Service: 08/02/24 Procedure(s): CT pel vis wo con Accession Number(s): [id number] cc: JALYN HERNÁNDEZ [place] [address] Patient Name: LAINEY ROGER MRN: [id number] date: 1955 Sex: F Assigned Patient Location: [facility] Current Patient Location: ED.MAIN Accession/Order Numb er: [id number] Exam Date: 13:15 Report Date: 08/03/2024 13:12 At the request of: AJLYN HERNÁNDEZ Procedure: CT pelvis wo con EXAMINATION: CT pelv is wo con HISTORY: Right Hip P ain, Right Groin Wound COMPARISON: No relev ant comparison available. TECHNIQUE: Axial, Coronal, and Sagittal images were obtained without and/or with IV contrast as indicated by examination type. Dose reduction techniques were achieved by i automated exposure control and/or adjustment of mA [...] M.D. Signed By: 08/03/241313 DD/ 11 TD/TT: Cafeteria Operator: GLYCOHEMOGLOBIN A1C Reviewed date:01/29/2025 09:32:41 AM Interpretation: Performing Lab: Notes/Report: [facility] , Glycohemoglobin A1C 5.7 4.5-6.2 % ADA RECOMMENDED LIMIT 4.0 - 6.0 ADA THERAPEUTIC TARGET < 7.0 ACTION SUGGESTED > 7.0 Estimated Average Glucose 117 Performing Lab: see note ML - [facility] LB CBC AUTO DIFF Reviewed date:01/29/2025 09:32:41 AM Interpretation: Performing Lab: Notes/Report: [facility] , White Blood Count 16.0 4.0-11.0 10 3/uL Red Blood Count 3.95 4.20-5.40 10 6/uL Hemoglobin 15.4 12.0-16.0 g/dL Hematocrit 44.3 36.0-48.0 % Mean Corpuscular Volume 112.2 81.0-99.0 fL Mean Corpuscular Hemoglobin 39.0 26.7-34.0 pg Mean Corpuscular HGB Conc 34.8 29.9-35.2 g/dL Red Cell Distribution Width 14.7 11.0-15.0 % 2+ MACRO Platelet Count 331 150-450 10 3/uL Mean Platelet Volume 9.5 9.5-13.5 fL Neutrophils Percent Auto 60.7 43.0-75.0 % Lymphocytes Percent Auto 28.2 20.5-60.0 % Monocytes Percent Auto 8.9 1.7-12.0 % Eosinophils Percent Auto 1.3 0.9-7.0 % Basophils Percent Auto 0.5 0.2-2.0 % Immature Granulocytes Pct Auto 0.4 0.0-0.5 % Neutrophils Absolute Auto 9.7 1.4-6.5 10 3/uL Lymphocytes Absolute Auto 4.5 1.2-3.8 10 3/uL Monocytes Absolute Auto 1.4 0.3-0.8 10 3/uL Eosinophils Absolute Auto 0.2 0.0-0.7 10 3/uL Basophils Absolute Auto 0.1 0.0-0.1 10 3/uL Immature Granulocytes Abs Auto 0.07 0.00-0.03 10 3/uL Performing Lab: see note ML - [facility] LB Reason For Referral No Information Medications Medication [...] Problem Status W/U Status Risk Notes Problem 42627430 Other intervertebral disc degeneration, 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 confirmed Problem 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 Problem Asthma (972481693) Asthma (J45.909) Active confirmed Problem Hypothyroid (75247302) Hypothyroid (E03.9) Active confirmed Problem Leukocytosis (229814497) Elevated WBC count (D72.829) Active confirmed Problem Constipation (65124351) Constipation (K59.00) Active confirmed Problem Osteoporosis (69762011) Osteoporosis (M81.0) Active confirmed Problem Degeneration of lumbar intervertebral disc (50792878) Degeneration of intervertebral disc of lumbar region (M51.36) Active confirmed Problem Closed fracture pubis (414365929) Fracture of pubic ramus, right, closed, initial encounter (S32.591A) Active confirmed Problem FCI systemic steroid user (7565224621533648 3) FCI systemic steroid user (Z79.52) Active confirmed Vital Signs Heart Rate 83 /min 01/28/2025 Oximetry 95 % 01/28/2025 Blood pressure diastolic 80 mm Hg 01/28/2025 Height 64 in 01/28/2025 Blood pressure systolic 142 mm Hg 01/28/2025 Weight 114.2 lbs 01/28/2025 BMI 19.6 kg/m2 01/28/2025 Encounters Encounter Location Date Provider Diagnosis [facility] [address] [facility] [place] [address] 07/07/2024 Jalyn Hernández [facility] [address] [facility] [place] [address] 07/26/2024 Jalyn Hernández [facility] [address] [place] [address] 07/26/2024 Jalyn Hernández [facility] [address] [facility] [place] [address] 08/02/2024 Jalyn Hernández Right hip pain M25.5 51 ; Right groin wound S31.109A and Clavicle pain M89.8X1 [facility] [address] [facility] [place] [address] 08/03/2024 Colin Hoy [facility] [address] [facility] [place] [address] 10/04/2024 Jalyn Hernández [facility] [address] [place] [address] 12/20/2024 Jalyn Hernández Asthma J45.909 [facility] [address] [facility] [place] [address] 01/29/2025 Jalyn Hernández Elevated WBC count D72.829 [facility] [address] [facility] [place] [address] 02/07/2025 Jalyn Hernández Back pain M54.9 [facility] [address] [place] [address] 01/28/2025 Jalynpedro Hernández Asthma J45.909 ; Hypothyroid E03.9 and Constipation K59.00 [facility] [address] [place] [address] 07/23/2024 Jalynpedro Hernández Asthma J45.909 and Hypothyroid E03.9 Assessments Encounter Date Diagnosis (ICD Code) Assessment [...] - S31.109A) 12/20/2024 Asthma (ICD-10 - J45.909) 01/29/2025 Elevated WBC count (ICD-10 - D72.829) 02/07/2025 Back pain (ICD-10 - M54.9) 08/02/2024 Clavicle pain (ICD-10 - M89.8X1) 01/28/2025 [...] Insulin Level 01/28/2025 STOOL OCCULT BLOOD 06/23/2023 CBC AUTO DIFF 01/29/2025 XR DEXA BONE DENSITY 07/13/2023 THYROID PANEL (T4/TSH/FREE T3) 5 THYROID PANEL (T4/TSH/FREE T3) 3 THYROID PANEL (T4/TSH/FREE T3) 4 XR lumbar spine 2-3V 07/11/2023 XR lumbar spine 2-3V 02/07/2025 XR thoracic spine 2V 02/07/2025 CMP (COMP MET PITTS) w/eGFR CKD-EPI 2024 CBC WITH DIFF 01/28/2025 Insurance Providers Payer Name Payer Address Payer Phone Subscriber Number Group Number Insured Name Patient Relationship to Insured Coverage Start Date Coverage End Date [place]IC[place] [address] [place] [address] [id number] Lainey Roger Self - patient is the insured Medical (General) History Medical History History ICD Code Atypical chest pain R07.89 Near syncope R55 Degeneration of intervertebral disc of l umbar region M51.36 joint terminal attack controller systemic steroid user Z79.52 Acquired absence of other organs Z90.89 Asthma J45.909 Hypothyroidism E03.9 Cervical cancer Displaced Posterior Left 9th rib fractur e Surgical History Surgery Date(Month/Year) gallbladder appendectomy Hysterectomy Splenectomy
--- OUTSIDE RECORDS SUMMARY | 2025-02-07 11:58 | XMS_ITS | Clinical Summary ---
Author Organization [facility] Address [address] [place] [address] Care Team Providers Care Circuit Recorder Name Role Phone Unavailable Primary Care Provider Unavailabl e Social History Tobacco Use Types Packs/Day Years Used Date Smoking Tobacco: Never Assessed Comments Unknown Sex and Gender Information Value Date Recorded Sex Assigned at Not on file Legal Sex Female 7:01 PM EDT Gender Identity Not on file Sexual Orientation Not on file Last Filed Vital Signs Vital Sign Reading Time Taken Comments Blood Pressure 112/78 08/28/2019 12:00 PM EST Pulse - - Temperature - - Respiratory Rate - - Oxygen Saturation - - Inhaled Oxygen Concentration - - Weight 54.4 kg (120 lb) 08/28/2019 12:00 PM EST Height 162.6 cm (5' 4 ) 08/28/2019 12:00 PM EST Body Mass Index 20.6 08/28/2019 12:00 PM EST Plan of Treatment Not on file Insurance MEDICARE
--- OUTSIDE RECORDS SUMMARY | 2025-02-07 11:58 | XMS_ITS | Clinical Summary ---
Author Organization [facility] Address [address] [place] [address] Care Team Providers Care Microfiche Camera Operator Name Role Phone Unavailable Primary Care Provider Unavailabl e Social History Tobacco Use Types Packs/Day Years Used Date Smoking Tobacco: Never Assessed [place] [employer] Answer Date Rec orded [...]
--- OUTSIDE RECORDS SUMMARY | 2025-02-07 11:59 | XMS_ITS | Clinical Summary ---
Author Organization [facility] Address [address] [place] [address] Care Team Providers Care Career Counselor Name Role Phone Dennis RAMÍREZ MD, Daniel B Primary Care Provider [phone] Medications ADVAIR DISKUS 100 MCG-50 MCG/DOSE INHL [...] 2029 Insurance [employer] PPO Care Teams Career Counselor Relationship Specialty Start Date End Date Emilio Collins II, MD [address] [facility] [address] [place] [address] PCP - General 03/17/05
--- NOTE | 2025-02-07 12:03 | XR_ITS ---
The [place] [id number] Patient Name: IDALMIS ROGER MRN: [id number] date: 1955 Sex: F Assigned Patient Location: [facility] Current Patient Location: [facility] Accession/Order Number: [id number] Exam Date: 02/07/2025 13:14 Report Date: 02/07/2025 13:16 At the request of: KEV DEVINE Procedure: XR thoracic spine 2V THORACIC SPINE - - 2 views CLINICAL HISTORY: Back pain COMPARISON: Thoracic spine 07/12/2023 FINDINGS: Bones are grossly demineralized. Scoliosis is present. Multiple compression deformities involving the mid thoracic spine which has progressed since 2022. Endplate degenerative changes. Pedicles appear intact. XR/XR thoracic spine 2V IMPRESSION: MULTIPLE COMPRESSION DEFORMITIES INVOLVING THE THORACIC SPINE SUBOPTIMALLY VISUALIZED DUE TO GROSS DEMINERALIZATION. FINDINGS APPEAR TO HAVE PROGRESSED SINCE 2022. IF FURTHER EVALUATION IS NEEDED, MRI IS SUGGESTED. Impression dictated by: Angel Avila Jr., DRudyORudy 02/07/2025 1:16 PM Dictation Location: [place] [address] Electronically authenticated by: [id number] Y Date: 02/07/2025 13:16
--- NOTE | 2025-02-07 12:03 | XR_ITS ---
The [place] [id number] Patient Name: IDALMIS ROGER MRN: [id number] date: 1955 Sex: F Assigned Patient Location: [facility] Current Patient Location: [facility] Accession/Order Number: [id number] Exam Date: 02/07/2025 13:16 Report Date: 02/07/2025 13:17 At the request of: KEV DEVINE Procedure: XR lumbar spine 2-3V LUMBAR SPINE - 3 views CLINICAL HISTORY: Back Pain COMPARISON: None FINDINGS: Scoliosis. Vertebral body heights appear maintained. Endplate and facet joint degenerative changes with diffuse mild to moderate disc space narrowing. XR/XR lumbar spine 2-3V IMPRESSION: SCOLIOSIS WITH DIFFUSE DEGENERATIVE DISC DISEASE. Impression dictated by: Angel Avila Jr., D.O. 02/07/2025 1:17 PM Dictation Location: [place] [address] Electronically authenticated by: [id number] Y Date: 02/07/2025 13:17
--- OUTSIDE RECORDS SUMMARY | 2025-02-07 12:21 | XMS_ITS | CCD ---
Author Organization [facility] Care Team Providers Care Charge Weigher Name Role Phone KEV DEVINE Admitting Unavailable KEV DEVINE Attending Unavailable KEV DEVINE Primary Care Unavailable KEV DEVINE Consulting Unavailable KEV DEVINE Admitting Unavailable KEV DEVINE Attending Unavailable KEV DEVINE Primary Care Unavailable KEV DEVINE Consulting Unavailable Km Nichols MD Attending Provider Km Nichols Attending Unavailable Km Nichols Admitting Unavailable Problems Problem Classification Problem Date Documented Da te Episodic/Chronic Deficiency and other anemia (1 source) Anemia, unspecified; Translations: [ANEMIA UNSPECIFIED] Onset: 06-21-2022 Episodic Diabetes mellitus without complication (1 source) Other abnormal glucose; Translations: [OTHER ABNORMAL GLUCOSE] Onset: 06-21-2022 Episodic Disorders of lipid metabolism (1 source) Hyperlipidemia, unspecified; Translations: [HYPERLIPIDEMIA UNSPECIFIED] Onset: 06-21-2022 Chronic Other eye disorders (1 source) Unspecified corneal ulcer, left eye; Translations: [Unspecified corneal ulcer, left eye] Onset: 08-30-2024 Episodic Thyroid disorders (4 sources) Hypothyroidism, unspecified; Translations: [HYPOTHYROIDISM UNSPECIFIED] Onset: 06-17-2022 Chronic Results Test Name Value Interpretation Reference Range Facility Eye Cultureon 08-30-2024 Eye Culture No Growth 2 Days PERFORMED BY: [place] [id number] PATHOLOGIST LADIES UNDERWEAR OPERATOR MARIO JACOBO M.D. Normal [facility] Comment on above: Performed By: #### C UEYE #### [place] [address] [place] #### MYC CULT #### [facility] , Fungus # 2 identified in Uns pecified specimen by CultureOrdered By: Km Nichols on 08-30-2024 Fungus identified # 2 Cx Nom (Unsp spec) Fungus # 2 identified in Unspecified specimen by Culture [facility] Fungus # 3 identified in Uns pecified specimen by CultureOrdered By: Km Nichols on 08-30-2024 Fungus identified # 3 Cx Nom (Unsp spec) Fungus # 3 identified in Unspecified specimen by Culture [facility] Fungus # 4 identified in Uns pecified specimen by CultureOrdered By: Km Nichols on 08-30-2024 Fungus identified # 4 Cx Nom (Unsp spec) Fungus # 4 identified in Unspecified specimen by Culture [facility] Fungus (Mycology) Cultureon 08-30-2024 Fungus (Mycology) Culture Final report Comment No yeast or mold isolated after 4 weeks. Performed at: - [facility] [id number] [employer]: Rafal Mehta PhD, Phone: [phone] PERFORMED BY: [place] [id number] PATHOLOGIST LADIES UNDERWEAR OPERATOR MARIO JACOBO M.D. Normal [facility] Comment on above: Performed By: #### C UEYE #### [address] #### MYC CULT #### [facility] , No Panel InformationOrdered By: Km Nichols on 08-30-2024 Mycology Susceptibility N/A F [facility] INSULINon 06-18-2022 Insulin 6.3 uIU/mL Normal 2.6-24.9 [facility] Comment on above: Performed By: #### I NSULIN #### [facility] [address] [place] [address] Dr. Celeste Herron CBC AUTO DIFFon 06-17-2022 BASO # 0.1 103/ul Normal 0.0-0.1 [facility] Comment on above: Performed By: #### I REBECA #### [facility] [address] [address] [address] Celeste Herron Basophils/100 WBC (Bld) 0.5 % Normal 0.2-2.0 [facility] [place] Comment on above: Performed By: #### I REBECA #### [facility] [address] [place] [address] Dr. Celeste Herron EO # 0.2 103/ul Normal 0.0-0.7 [facility] Comment on above: Performed By: #### I REBECA #### [facility] [address] [place] [address] Dr. Celeste Herron Eosinophils/100 WBC (Bld) 1.0 % Normal 0.9-7.0 [facility] Comment on above: Performed By: #### I REBECA #### [facility] [address] [place] [address] Dr. Celeste Herron Erythrocyte distribution width (RBC) [Ratio] 14.6 % Normal 11.0-15.0 [facility] Comment on above: Performed By: #### I REBECA #### [facility] [address] [place] [address] Dr. Celeste Herron Hematocrit (Bld) [Volume fraction] 46.0 % Normal 36.0-48.0 [facility] Comment on above: Performed By: #### I REBECA #### [facility] [address] [place] [address] Dr. Celeste Herron Hemoglobin (Bld) [Mass/Vol] 15.2 g/dL Normal 12.0-16.0 [facility] Comment on above: Performed By: #### I REBECA #### [facility] [address] [place] [address] Dr. Celeste Herron IG # 0.11 10e3/ul Critically high 0.00-0.03 [facility] Comment on above: Performed By: #### I REBECA #### [facility] [address] [place] [address] Dr. Celeste Herron IG % 0.6 % Critically high 0.0-0.5 [facility] Comment on above: Performed By: #### I REBECA #### [facility] [address] [address] [address] Celeste Herron LYMPH # 2.1 103/ul Normal 1.2-3.8 [facility] Comment on above: Performed By: #### I REBECA #### [facility] [address] [place] [address] Dr. Celeste Herron Lymphocytes/100 WBC (Bld) 10.9 % Critically low 20.5-60.0 [facility] Comment on above: Performed By: #### I REBECA #### [facility] [address] [place] [address] Dr. Celeste Herron MANUAL DIFF REQ NO Normal [facility] Comment on above: Performed By: #### I REBECA #### [facility] [address] [place] [address] Dr. Celeste Herron MCH (RBC) [Entitic mass] 33.5 pg Normal 26.7-34.0 [facility] Comment on above: Performed By: #### I REBECA #### [facility] [address] [place] [address] Dr. Celeste Herron MCHC (RBC) [Mass/Vol] 33.0 g/dL Normal 29.9-35.2 [facility] Comment on above: Performed By: #### I REBECA #### [facility] [address] [place] [address] Dr. Celeste Herron MCV (RBC) [Entitic vol] 101.3 fL Critically high 81.0-99 .0 [facility] Comment on above: Performed By: #### I REBECA #### [facility] [address] [place] [address] Dr. Celeste Herron MONO # 0.9 103/ul Critically high 0.3-0.8 [facility] Comment on above: Performed By: #### I REBECA #### [facility] [address] [place] [address] Dr. Celeste Herron Monocytes/100 WBC (Bld) 4.5 % Normal 1.7-12.0 [facility] [place] Comment on above: Performed By: #### I REBECA #### [facility] [address] [place] [address] Dr. Celeste Herron NEUT # 15.8 103/ul Critically high 1.4-6.5 [facility] Comment on above: Performed By: #### I REBECA #### [facility] [address] [place] [address] Dr. Celeste Herron Neutrophils/100 WBC (Bld) 82.5 % Critically high 43.0-75.0 [facility] Comment on above: Performed By: #### I REBECA #### [facility] [address] [place] [address] Dr. Celeste Herron Platelet mean volume (Bld) [Entitic vol] 9.5 fL Normal 9.5-13.5 [facility] Comment on above: Performed By: #### I REBECA #### [facility] [address] [place] [address] Dr. Celeste Herron PLT 361 103/ul Normal 150-450 [facility] Comment on above: Performed By: #### I REBECA #### [facility] [address] [place] [address] Dr. Celeste Herron RBC 4.54 106/ul Normal 4.20-5.40 [facility] Comment on above: Performed By: #### I REBECA #### [facility] [address] [place] [address] Dr. Celeste Herron WBC 19.1 103/ul Critically high 4.0-11.0 [facility] Comment on above: Performed By: #### I REBECA #### [facility] [address] [place] [address] Dr. Celeste Herron FREE THYROXINE INDEX T7on FTI 4.07 Normal 1.30-4.50 [facility] Comment on above: Performed By: #### T SH, T7, CMP, LIPID #### [facility] [address] [place] [address] Dr. Celeste Herron T3U 37.0 % Normal 30.0-39.0 [facility] Comment on above: Performed By: #### T SH, T7, CMP, LIPID #### [facility] [address] [place] [address] Dr. Celeste Herron T4 [Mass/Vol] 11.00 ug/dL Normal 4.80-13.90 [facility] Comment on above: Performed By: #### T SH, T7, CMP, LIPID #### [facility] [address] [address] [address] Celeste Herron GLYCOHEMOGLOBIN A1Con 2021 ADA RECOMMENDATION SEE BELOW Normal [facility] Comment on above: Result Comment: ADA RECOMMENDED LIMIT 4.0 - 6.0 ADA THERAPEUTIC TARGET < 7.0 ACTION SUGGESTED > 7.0 Performed By: #### A 1C #### [facility] [address] [address] [address] Celeste Herron Glucose [Mass/Vol] 117 mg/dL Normal [facility] Comment on above: Performed By: #### A 1C #### [facility] [address] [place] [address] Dr. Celeste Herron HbA1c (Bld) [Mass fraction] 5.7 % Normal 4.5-6.2 [facility] Comment on above: Performed By: #### A 1C #### [facility] [address] [place] [address] Dr. Celeste Herron IRONon 06-17-2022 Iron [Mass/Vol] 121.0 ug/dL Normal 50.0-170.0 [facility] Comment on above: Performed By: #### I REBECA #### [facility] [address] [place] [address] Dr. Celeste Herron LIPID PROFILEon 06-17-2022 CHOL-HDL RATIO NORM SEE BELOW Normal [place] Comment on above: Result Comment: 3.3 - 4.4 LOW RISK 4.4 - 7.1 AVERAGE RISK 7.1 - 11.0 MODERATE RISK >11.0 HIGH RISK Performed By: #### T SH, T7, CMP, LIPID #### [facility] [address] [place] [address] Dr. Celeste eHrron Cholesterol [Mass/Vol] 235 mg/dL Critically high <=200 [facility] Comment on above: Performed By: #### T SH, T7, CMP, LIPID #### [facility] [address] [address] [address] Celeste Herron Cholesterol in HDL [Mass/Vol] 90 mg/dL Critically high 40-60 [facility] Comment on above: Performed By: #### T SH, T7, CMP, LIPID #### [facility] [address] [address] [address] Celeste Herron Cholesterol in LDL [Mass/Vol] 122.8 mg/dL Normal [facility] Comment on above: Performed By: #### T SH, T7, CMP, LIPID #### [facility] [address] [address] [address] Celeste Herron Cholesterol.total/Jeny sterol in HDL [Mass ratio] 2.6 {ratio} Normal [facility] Comment on above: Performed By: #### T SH, T7, CMP, LIPID #### [facility] [address] [address] [address] Celeste Herron HDL NORMAL > or = 60 mg/dl - LOW CARDIOVASCULAR RISK <40 mg/dl - HIGH CARDIOVASCULAR RISK Normal [facility] Comment on above: Performed By: #### T SH, T7, CMP, LIPID #### [facility] [address] [address] [address] Celeste Herron LDL CALC NORMAL SEE BELOW Normal [facility] Comment on above: Result Comment: <100 mg/dl OPTIMAL 100 - 129 mg/dl NEAR OR ABOVE OPTIMAL 130 - 159 mg/dl BORDERLINE HIGH 160 - 189 mg/dl HIGH >190 mg/dl VERY HIGH Performed By: #### T SH, T7, CMP, LIPID #### [facility] [address] [address] [address] Celeste Herron Triglyceride [Mass/Vol] 111 mg/dL Normal <=150 [facility] [place] Comment on above: Performed By: #### T SH, T7, CMP, LIPID #### [facility] [address] [address] [address] Celeste Herron VLDL CALC 22.2 mg/dL Normal [facility] Comment on above: Performed By: #### T SH, T7, CMP, LIPID #### [facility] [address] [address] [address] Celeste Herron PROF 14(COMP METB)on 022 Albumin [Mass/Vol] 3.8 g/dL Normal 3.4-5.0 [facility] Comment on above: Performed By: #### T SH, T7, CMP, LIPID #### [facility] [address] [address] [address] Celeste Herron Albumin/Globulin [Mass ratio] 1.2 {ratio} Normal [facility] Comment on above: Performed By: #### T SH, T7, CMP, LIPID #### [facility] [address] [address] [address] Celeste Herron ALP [Catalytic activity/Vol] 60 U/L Normal 46-116 [facility] Comment on above: Performed By: #### T SH, T7, CMP, LIPID #### [facility] [address] [place] [address] Dr. Celeste Herron ALT [Catalytic activity/Vol] 18 U/L Normal 14-59 [facility] Comment on above: Performed By: #### T SH, T7, CMP, LIPID #### [facility] [address] [address] [address] Celeste Herron Anion gap [Moles/Vol] 11.0 mmol/L Normal [facility] Comment on above: Performed By: #### T SH, T7, CMP, LIPID #### [facility] [address] [place] [address] Dr. Celeste Herron AST [Catalytic activity/Vol] 16 U/L Normal 15-37 [facility] Comment on above: Performed By: #### T SH, T7, CMP, LIPID #### [facility] [address] [address] [address] Celeste Herron Bilirubin [Mass/Vol] 0.5 mg/dL Normal 0.2-1.0 [facility] Comment on above: Performed By: #### T SH, T7, CMP, LIPID #### [facility] [address] [address] [address] Celeste Herron Calcium [Mass/Vol] 9.2 mg/dL Normal 8.5-10.1 [facility] Comment on above: Performed By: #### T SH, T7, CMP, LIPID #### [facility] [address] [address] [address] Celeste Herron Chloride [Moles/Vol] 102 mmol/L Normal 98-107 [facility] Comment on above: Performed By: #### T SH, T7, CMP, LIPID #### [facility] [address] [address] [address] Celeste Herron CO2 [Moles/Vol] 30.0 mmol/L Normal 21.0-32.0 [facility] Comment on above: Performed By: #### T SH, T7, CMP, LIPID #### [facility] [address] [place] [address] Dr. Celeste Herron Creatinine [Mass/Vol] 0.76 mg/dL Normal 0.55-1.02 [facility] Comment on above: Performed By: #### T SH, T7, CMP, LIPID #### [facility] [address] [place] [address] Dr. Celeste Herron EGFR-AF SAMMARINESE >60 Normal >=60 [facility] Comment on above: Performed By: #### T SH, T7, CMP, LIPID #### [facility] [address] [place] [address] Dr. Celeste Herron EGFR-NON AF SAMMARINESE >60 Normal >=60 [facility] Comment on above: Performed By: #### T SH, T7, CMP, LIPID #### [facility] [address] [place] [address] Dr. Celeste Herron Globulin (S) [Mass/Vol] 3.2 g/dL Normal [facility] [place] Comment on above: Performed By: #### T SH, T7, CMP, LIPID #### [facility] [address] [place] [address] Dr. Celeste Herron Glucose [Mass/Vol] 88 mg/dL Normal 74-106 [facility] Comment on above: Performed By: #### T SH, T7, CMP, LIPID #### [facility] [address] [place] [address] Dr. Celeste Herron Potassium [Moles/Vol] 4.0 mmol/L Normal 3.5-5.1 [facility] Comment on above: Performed By: #### T SH, T7, CMP, LIPID #### [facility] [address] [address] [address] Celeste Herron Protein [Mass/Vol] 7.0 g/dL Normal 6.4-8.2 [facility] Comment on above: Performed By: #### T SH, T7, CMP, LIPID #### [facility] [address] [place] [address] Dr. Celeste Herron Sodium [Moles/Vol] 139 mmol/L Normal 136-145 [facility] Comment on above: Performed By: #### T SH, T7, CMP, LIPID #### [facility] [address] [place] [address] Dr. Celeste Herron Urea nitrogen [Mass/Vol] 19.0 mg/dL Critically high 7.0-18.0 [facility] Comment on above: Performed By: #### T SH, T7, CMP, LIPID #### [facility] [address] [place] [address] Dr. Celeste Herron Urea nitrogen/Creatinine [Mass ratio] 25.0 mg/mg Normal [facility] Comment on above: Performed By: #### T SH, T7, CMP, LIPID #### [facility] [address] [place] [address] Dr. Celeste Herron TSHon 06-17-2022 TSH 0.297 uIU/mL Critically low 0.358-3.740 [facility] Comment on above: Performed By: #### T SH, T7, CMP, LIPID #### [facility] [address] [place] [address] Dr. Celeste Herron CBC AUTO DIFFon 07-07-2021 BASO # 0.1 103/ul Normal 0.0-0.1 [facility] Comment on above: Performed By: #### C BC #### [facility] [address] [address] [address] Celeste Herron Basophils/100 WBC (Bld) 0.7 % Normal 0.2-2.0 [facility] [place] Comment on above: Performed By: #### C BC #### [facility] [address] [place] [address] Dr. Celeste Herron EO # 0.3 103/ul Normal 0.0-0.7 [facility] Comment on above: Performed By: #### C BC #### [facility] [address] [place] [address] Dr. Celeste Herron Eosinophils/100 WBC (Bld) 2.4 % Normal 0.9-7.0 [facility] Comment on above: Performed By: #### C BC #### [facility] [address] [place] [address] Dr. Celeste Herron Erythrocyte distribution width (RBC) [Ratio] 14.4 % Normal 11.0-15.0 [facility] Comment on above: Performed By: #### C BC #### [facility] [address] [place] [address] Dr. Celeste Herron Hematocrit (Bld) [Volume fraction] 44.0 % Normal 36.0-48.0 [facility] Comment on above: Performed By: #### C BC #### [facility] [address] [place] [address] Dr. Celeste Herron Hemoglobin (Bld) [Mass/Vol] 14.4 g/dL Normal 12.0-16.0 [facility] Comment on above: Performed By: #### C BC #### [facility] [address] [place] [address] Dr. Celeste Herron IG # 0.04 10e3/ul Critically high 0.00-0.03 [facility] Comment on above: Performed By: #### C BC #### [facility] [address] [place] [address] Dr. Celeste Herron IG % 0.3 % Normal 0.0-0.5 [facility] Comment on above: Performed By: #### C BC #### [facility] [address] [place] [address] Dr. Celeste Herron LYMPH # 4.6 103/ul Critically high 1.2-3.8 [facility] Comment on above: Performed By: #### C BC #### [facility] [address] [place] [address] Dr. Celeste Herron Lymphocytes/100 WBC (Bld) 37.4 % Normal 20.5-60.0 [facility] Comment on above: Performed By: #### C BC #### [facility] [address] [place] [address] Dr. Celeste Herron MANUAL DIFF REQ NO Normal [facility] Comment on above: Performed By: #### C BC #### [facility] [address] [place] [address] Dr. Celeste Herron MCH (RBC) [Entitic mass] 33.0 pg Normal 26.7-34.0 [facility] Comment on above: Performed By: #### C BC #### [facility] [address] [place] [address] Dr. Celeste Herron MCHC (RBC) [Mass/Vol] 32.7 g/dL Normal 29.9-35.2 [facility] Comment on above: Performed By: #### C BC #### [facility] [address] [place] [address] Dr. Celeste Herron MCV (RBC) [Entitic vol] 100.9 fL Critically high 81.0-99 .0 [facility] Comment on above: Performed By: #### C BC #### [facility] [address] [place] [address] Dr. Celeste Herron MONO # 1.1 103/ul Critically high 0.3-0.8 [facility] Comment on above: Performed By: #### C BC #### [facility] [address] [place] [address] Dr. Celeste Herron Monocytes/100 WBC (Bld) 9.2 % Normal 1.7-12.0 [facility] [place] Comment on above: Performed By: #### C BC #### [facility] [address] [place] [address] Dr. Celeste Herron NEUT # 6.1 103/ul Normal 1.4-6.5 [facility] Comment on above: Performed By: #### C BC #### [facility] [address] [address] [address] Celeste Herron Neutrophils/100 WBC (Bld) 50.0 % Normal 43.0-75.0 [facility] Comment on above: Performed By: #### C BC #### [facility] [address] [address] [address] Celeste Herron Platelet mean volume (Bld) [Entitic vol] 9.5 fL Normal 9.5-13.5 [facility] Comment on above: Performed By: #### C BC #### [facility] [address] [place] [address] Dr. Celeste Herron PLT 339 103/ul Normal 150-450 [facility] Comment on above: Performed By: #### C BC #### [facility] [address] [place] [address] Dr. Celeste Herron RBC 4.36 106/ul Normal 4.20-5.40 [facility] Comment on above: Performed By: #### C BC #### [facility] [address] [place] [address] Dr. Celeste Herron WBC 12.3 103/ul Critically high 4.0-11.0 [facility] Comment on above: Performed By: #### C BC #### [facility] [address] [place] [address] Dr. Celeste Herron FREE THYROXINE INDEX T7on FTI 4.11 Normal [facility] Comment on above: Performed By: #### T 7, TSH #### [facility] [address] [place] [address] Dr. Celeste Herron T3U 37.0 % Normal 23.5-40.5 [facility] Comment on above: Performed By: #### T 7, TSH #### [facility] [address] [place] [address] Dr. Celeste Herron T4 [Mass/Vol] 11.10 ug/dL Critically high 5.53-11.00 [place] Comment on above: Performed By: #### T 7, TSH #### [facility] [address] [place], [place] [address] Dr. Celeste Herron TSHon 07-07-2021 TSH 0.149 uIU/mL Critically low 0.470-4.680 The [facility] Comment on above: Performed By: #### T 7, TSH #### [facility] [address] [place], [place] [address] Dr. Celeste Herron TSH RANGE SEE BELOW Normal [facility] Comment on above: Result Comment: <0.3 4 UIU/ml HYPERTHYROID 0.34-5.60 UIU/ml EUTHYROID >5.60 UIU/ml HYPOTHYROID Performed By: #### T 7, TSH #### [facility] [address] [place] [address] [address] Celeste Herron Encounters Encounter Date Encounter Type Care Provider Facility Start: 08-30-2024 End: 08-30-2024 ambulatory Km Nichols [facility] Work Phone: Start: 08-30-2024 End: 08-30-2024 Departed Referred Km Nichols MD Work Phone: [facility] Work Phone: Start: 06-17-2022 End: 06-18-2022 ambulatory KEV DEVINE Facility:H1 Start: 08-05-2021 Encounter for genera l adult medical examination without abnormal findings KEV DEVINE [facility] Start: 07-07-2021 End: 07-08-2021 ambulatory KEV DEVINE Facility:[facility]1 Start: 07-07-2021 End: 07-08-2021 Encounter for general adult medical examination without abnormal findings KEV DEVINE Facility:[facility]1 Procedures Date Procedure Procedure Detail Performing Clinician Start: 08-30-2024 Fungal Culture Result 2 Km Nichols MD Work Phone: Start: 08-30-2024 Fungal Culture Result 3 Km Nichols MD Work Phone: Start: 08-30-2024 Fungal Culture Result 4 Km Nichols MD Work Phone: Start: 08-30-2024 Mycology Susceptibility Km Nichols MD Work Phone: Plan of Treatment Date Care Activity Detail Author Start: 08-30-2024 Eye Culture Eye Culture [facility] Start: 08-30-2024 Fungal Culture Result 1 Fungal Culture Result 1 [facility] Start: 08-30-2024 Mycology Culture Mycology Culture [facility] Start: 08-30-2024 Source specific culture [facility] Start: 08-30-2024 [facility] Fungus identified in Unspecified specimen by Culture [facility] Payers Date Payer Category Payer Self-pay 1960 Medicare [id number] 1955 Unknown [id number] 1955 Unknown [id number] Unknown [id number] Social History Date Type Detail Facility Tobacco smoking stat [facility] Unknown if ever smoked [facility] Work Phone: Start: 08-31-2024 Sex Female (finding) [facility] Start: 1955 Sex Assigned At Female F [facility] Evaluation note Note Date & Type Note Facility Evaluation note No assessment information availa ble [facility] Work Phone: Summary Purpose Family History No Family History Records FoundNo Family History Records Found Advance Directives No Advanced Directives Records FoundNo Advanced Directives Records Found Additional Source Comments INFORMATION SOURCE (unrecogn ized section and content) DATE CREATED AUTHOR 06/21/2022 The Tiffany farias DATE CREATED AUTHOR AUTHOR'S ORGANIZ ATION 10/01/2024 The [facility] Care Teams (unrecognized sec tion and content) Team Status: Inactive Member Role Status Dates Km Nichols MD Attending Provider Active Start: August 30, 2024 End: August 30, 2024 Goals (unrecognized section and content) Goals may be documented in a n alternate section FOR RECORDS PERTAINING TO PATIENTS WHO ARE [...] BE BASED ON THE PRIMARY CLINICAL RECORDS. [facility]. provides no warranty or guarantee of the accuracy or completeness of information in this document.
== END 2025-02-07 11:54 | disposition home or self-care (01) ==
LOC: RAD 11:57
PROVIDERS: PCP Nurse Practitioner Family; Visit Provider Nurse Practitioner Family
DX: M54.9 Dorsalgia, unspecified (principal); M51.369 Other intervertebral disc degeneration, lumbar region without mention of lumbar back pain or lower extremity pain
CPT/HCPCS: 72070; 72100

== ENCOUNTER 2025-02-13 08:47 | Outpatient (OUT) | payer MEDICARE, SELFPAY ==
--- NOTE | 2025-02-13 08:53 | MR_ITS ---
The [address] [address] Patient Name: IDALMIS ROGER MRN: [id number] date: 1955 Sex: F Assigned Patient Location: MRI Current Patient Location: MRI Accession/Order Number: [id number] Exam Date: 02/13/2025 18:33 Report Date: 02/13/2025 18:39 At the request of: KEV DEVINE Procedure: MR thoracic spine wo con MR THORACIC SPINE PERFORMED WITHOUT CONTRAST INDICATION: Back pain, degeneration thoracic region COMPARISON: Thoracic spine x-rays 02/07/2025 FINDINGS: Chronic compression fractures T5-T7 with approximately 50-60% loss of height. There is a superior plate compression fracture appearing acute with corresponding edema with 30-40% loss of height at T9. The remaining thoracic vertebral heights preserved. Otherwise age-appropriate appearance of the bone marrow signal. No significant retropulsion into the canal. The thoracic cord is normal in signal morphology. No evidence of cord compression or contusion. [id number]-[id number] multilevel facet arthropathy. Mild broad-based disc bulges T5-T7 and T10-11. MR/MR thoracic spine wo con IMPRESSION: Acute compression fracture at T9 without significant retropulsion. Otherwise mild degenerative changes without high-grade canal or neural foraminal narrowing identified. Impression dictated by: Bo Areavlo M.D. 02/13/2025 6:39 PM Dictation Location: [place] [address] Electronically authenticated by: [id number] Y Date: 02/13/2025 18:39
--- NOTE | 2025-02-13 08:53 | MR_ITS ---
The [address] [address] Patient Name: IDALMIS ROGER MRN: [id number] date: 1955 Sex: F Assigned Patient Location: MRI Current Patient Location: MRI Accession/Order Number: [id number] Exam Date: 02/13/2025 11:54 Report Date: 02/13/2025 11:58 At the request of: KEV DEVINE Procedure: MR lumbar spine wo con MR lumbar spine wo con 02/13/2025 10:15 AM SIGNS AND SYMPTOMS: Chronic low back pain PROTOCOL: Multiplanar multisequence MR images of the lumbar spine without IV contrast COMPARISON: None. FINDINGS: There is 3 mm of retrolisthesis of L5 upon S1 which is unchanged. The bones are otherwise in anatomic alignment. There is preservation of vertebral body heights. There is moderate to severe disc height loss with Modic type I endplate edema at L3-L4 which is new when compared to the prior exam. There is disc desiccation and mild disc height loss at L4-5 and L5-S1 which is unchanged.. The conus terminates at the mid L1 vertebral body level. No epidural or paraspinous fluid collection is appreciated. At T12-L1: There is a normal disc, central canal, and neural foramen. At L1-L2: There is a broad-based disc bulge with facet hypertrophy. There is mild spinal canal narrowing with mild bilateral neural foraminal narrowing similar to the prior exam. At L2-L3: There is a broad-based disc bulge with facet hypertrophy contributing to mild spinal canal stenosis and mild bilateral neural foraminal narrowing similar to the prior exam. At L3-L4: There is a broad-based disc bulge with facet hypertrophy and ligamentum flavum thickening contributing to moderate spinal canal stenosis with moderate to severe right and mild left neural foraminal narrowing. This is worse when compared to the prior exam. At L4-L5: There is a broad-based disc bulge with facet hypertrophy and ligamentum flavum thickening. There is moderate spinal canal stenosis with mild to moderate bilateral neural foraminal narrowing similar to the prior exam. At L5-S1: There is a broad-based disc bulge with facet hypertrophy. There is no significant spinal canal narrowing. There is endplate osteophyte formation in the left contributing to moderate left neural foraminal narrowing and mild right neural foraminal narrowing. This is similar to the prior exam. MR/MR lumbar spine wo con IMPRESSION: At L3-L4: There is a broad-based disc bulge with facet hypertrophy and ligamentum flavum thickening contributing to moderate spinal canal stenosis with moderate to severe right and mild left neural foraminal narrowing. This is worse when compared to the prior exam. Additional degenerative changes are noted as above similar to the prior study. Impression dictated by: Elia Marcum M.D. 02/13/2025 11:58 AM Dictation Location: [place] [address] Electronically authenticated by: [id number] Y Date: 02/13/2025 11:58
== END 2025-02-13 08:48 | disposition home or self-care (01) ==
LOC: MRI 08:47
PROVIDERS: PCP Nurse Practitioner Family; Visit Provider Nurse Practitioner Family
DX: M51.34 Other intervertebral disc degeneration, thoracic region (principal); M54.9 Dorsalgia, unspecified; M48.54XA Collapsed vertebra, not elsewhere classified, thoracic region, initial encounter for fracture; M51.369 Other intervertebral disc degeneration, lumbar region without mention of lumbar back pain or lower extremity pain
CPT/HCPCS: 72146; 72148